=== PATIENT | female | born 1940 | race Caucasian/White ===

== ENCOUNTER 2018-11-13 19:33 | Emergency (ER) | payer OTHER ==
[2018-11-13] MEDS ORDERED: HYDROCODONE/APAP 5/325 MG TAB ONE (20:12)
--- NOTE | 2018-11-13 22:28 | ER ---
Nurse's Notes [facility] Name: Roselyn Riley Age: 77 yrs Sex: Female : 1940 Arrival Date: 11/13/2018 Time: 19:36 Bed 23 [facility] MD: Diagnosis: Contusion of lower back and pelvis Presentation: 11/13 20:59 Presenting complaint: Child states: SHE FELL THIS MORNING. SHE WAS ON BED ALL DAY. I rv TOOK HER TO THE PRIMARY DOCTOR AND HER LABS ARE ABNORMAL. Care prior to arrival: None. Mechanism of Injury: Fall. 20:59 Acuity: JUNITO 3 rv 20:59 Method Of Arrival: Ambulatory rv 21:06 Transition of care: patient was not received from another setting of care. Onset of rv symptoms was November 13, 2018 at 08:00. Risk Assessment: Do you want to hurt yourself or someone else? Patient reports no desire to harm self or others. Initial Sepsis Screen: Does the patient meet any 2 criteria? No. Patient's initial sepsis screen is negative. Does the patient have a suspected source of infection? No. Patient's initial sepsis screen is negative. Triage Assessment: 21:03 Pain: Complains of pain in HIPS. EENT: No signs and/or symptoms were reported regarding rv the EENT system. Neuro: Level of Consciousness is awake, alert, obeys commands, Oriented to person, place, time, situation. Cardiovascular: Capillary refill < 3 seconds. Respiratory: Airway is patent. GI: No signs and/or symptoms were reported involving the gastrointestinal system. : No signs and/or symptoms were reported regarding the genitourinary system. Derm: Skin is intact. Musculoskeletal: Reports pain in back. Historical: - Allergies: 21:02 No Known Allergies; rv - Home Meds: 21:02 levothyroxine oral [Active]; rv - PMHx: 21:02 PREVIOUS CANCER, JAW; rv - PSHx: 21:02 Hysterectomy; Appendectomy; Cholecystectomy; rv - Immunization history:: Adult Immunizations up to date. - Social history:: Smoking status: Patient uses tobacco products, smokes one pack cigarettes per day. - Ebola Screening: : Patient negative for fever greater than or equal to 101.5 degrees Fahrenheit, and additional compatible Ebola Virus Disease symptoms Patient denies exposure to infectious person Patient denies travel to an Ebola-affected area in the 21 days before illness onset. Screenin:04 Abuse screen: Denies threats or abuse. Denies injuries from another. Nutritional rv screening: No deficits noted. Tuberculosis screening: No symptoms or risk factors identified. Fall Risk Fall in past 12 months (25 points). Secondary diagnosis (15 points) impaired mobility, No IV (0 pts). Ambulatory Aid- Furniture (30 pts.). Gait- Weak (10 pts.). Mental Status- Oriented to own ability (0 pts). Primary Survey: 20:30 NO uncontrolled hemorrhage observed. Breathing/Chest: Respiratory pattern: regular, rv Respiratory effort: spontaneous, Breath sounds: clear, bilaterally. Chest inspection: symmetrical rise and fall of the chest. Circulation: Cardiac rhythm: sinus rhythm. Disability Alert. Exposure/Environment: All clothing and personal items were removed. There is no evidence of uncontrolled external bleeding. No obvious injuries are noted at this time. A warming method has been applied: A warm blanket has been provided to the patient. 20:30 Reassessment Breathing/Chest Respiratory pattern Regular Circulation Heart rhythm Sinus rv rhythm Disability Alert. Assessment: 21:00 General: Appears in no apparent distress. comfortable, Behavior is calm, cooperative. rv Pain: Complains of pain in HIPS. Neuro: Level of Consciousness is awake, alert, obeys commands, Oriented to person, place, time, situation. EENT: No signs and/or symptoms were reported regarding the EENT system. Cardiovascular: Capillary refill < 3 seconds. Respiratory: Airway is patent. GI: No signs and/or symptoms were reported involving the gastrointestinal system. : No signs and/or symptoms were reported regarding the genitourinary system. Derm: Skin is intact. Musculoskeletal: Reports pain in HIPS. 22:09 Reassessment: Patient appears in no apparent distress at this time. Patient and/or rv family updated on plan of care and expected duration. Pain level reassessed. Patient is alert, oriented x 3, equal unlabored respirations, skin warm/dry/pink. Patient denies pain at this time. Patient states feeling better. Patient states symptoms have improved. Vital Signs: 20:30 BP 127 / 73; Pulse 82; Resp 18; Pulse Ox 98% ; rv 20:30 Temp 98.4(O); rv 22:07 BP 139 / 74 LA; Pulse 75; Resp 20 S; Pulse Ox 95% on R/A; rv Taurus Coma Score: 21:05 Eye Response: spontaneous(4). Verbal Response: oriented(5). Motor Response: obeys rv commands(6). Total: 15. Trauma Score (Adult): 21:05 Eye Response: spontaneous(1); Verbal Response: oriented(1); Motor Response: obeys rv commands(2); Systolic BP: > 89 mm Hg(4); Respiratory Rate: 10 to 29 per min(4); Taurus Score: 15; Trauma Score: 12 ED Course: 19:36 Patient arrived in ED. mr 19:41 Jesus Bullock MD is Attending Physician. tw4 21:00 Triage completed. rv 21:06 Arm band placed on right wrist. EKG completed in triage. Results shown to MD. rv 21:06 Patient maintains SpO2 saturation greater than 95% on room air. rv 21:07 Patient has correct armband on for positive identification. Placed in gown. Bed in low rv position. Call light in reach. Side rails up X 1. Adult w/ patient. Pulse ox on. NIBP on. 21:07 Thermoregulation: warm blanket given to patient. rv 21:21 CT completed. Patient tolerated procedure well. Patient moved back from CT. mw3 21:36 CT Pelvis wo Cont In Process Unspecified. EDMS 22:48 No provider procedures requiring assistance completed. Patient did not have IV access rv during this emergency room visit. Administered Medications: 20:00 Drug: [place] 5 mg-325 mg 1 tabs Route: PO; rv 21:27 Follow up: Response: Pain is decreased rv 20:07 CANCELLED (Duplicate Order): [place] 5 mg-325 mg 1 tabs PO once rv Outcome: 22:27 Discharge ordered by . tw4 22:48 Discharged to home ambulatory. rv 22:48 Condition: good 22:48 Discharge instructions given to patient, family, Instructed on discharge instructions, follow up and referral plans. Demonstrated understanding of instructions, follow-up care. 22:49 Patient left the ED. rv Signatures: Dispatcher [employer] EDMI Cheryl Almaraz Jesus Bullock MD MD tw4 oJsefa Azevedo mw3 Estuardo Fowler, KEYUR RN rv
--- NOTE | 2018-11-13 22:28 | EDPHYS ---
Physician Documentation [facility] Name: Roselyn Riley Age: 77 yrs Sex: Female : 1940 Arrival Date: 11/13/2018 Time: 19:36 Bed 23 Private MD: ED Physician Jessu Bullock HPI: 11/14 05:08 This 77 yrs old Female presents to ER via Ambulatory with complaints of Fall tw4 Injury. 05:08 Details of fall: The patient fell from an upright position, while walking. Onset: The tw4 symptoms/episode began/occurred today. Associated injuries: The patient sustained injury to the low back. Severity of symptoms: At their worst the symptoms were moderate, in the emergency department the symptoms are unchanged. The patient has not experienced similar symptoms in the past. Historical: - Allergies: 11/13 21:02 No Known Allergies; rv - Home Meds: 21:02 levothyroxine oral [Active]; rv - PMHx: 21:02 PREVIOUS CANCER, JAW; rv - PSHx: 21:02 Hysterectomy; Appendectomy; Cholecystectomy; rv - Immunization history:: Adult Immunizations up to date. - Social history:: Smoking status: Patient uses tobacco products, smokes one pack cigarettes per day. - Ebola Screening: : Patient negative for fever greater than or equal to 101.5 degrees Fahrenheit, and additional compatible Ebola Virus Disease symptoms Patient denies exposure to infectious person Patient denies travel to an Ebola-affected area in the 21 days before illness onset. ROS: 11/14 05:08 Constitutional: Negative for fever, chills, and weight loss, Eyes: Negative for injury, tw4 pain, redness, and discharge, Cardiovascular: Negative for chest pain, palpitations, and edema, Respiratory: Negative for shortness of breath, cough, wheezing, and pleuritic chest pain, Abdomen/GI: Negative for abdominal pain, nausea, vomiting, diarrhea, and constipation, MS/Extremity: Negative for injury and deformity, Skin: Negative for injury, rash, and discoloration. Back: Positive for injury or acute deformity, pain with movement, Negative for radiated pain. Exam: 05:08 Constitutional: This is a well developed, well nourished patient who is awake, alert, tw4 and in no acute distress. Head/Face: Normocephalic, atraumatic. Chest/axilla: Normal chest wall appearance and motion. Nontender with no deformity. No lesions are appreciated. Cardiovascular: Regular rate and rhythm with a normal S1 and S2. No gallops, murmurs, or rubs. Normal PMI, no JVD. No pulse deficits. Respiratory: Lungs have equal breath sounds bilaterally, clear to auscultation and percussion. No rales, rhonchi or wheezes noted. No increased work of breathing, no retractions or nasal flaring. Abdomen/GI: Soft, non-tender, with normal bowel sounds. No distension or tympany. No guarding or rebound. No evidence of tenderness throughout. Skin: Warm, dry with normal turgor. Normal color with no rashes, no lesions, and no evidence of cellulitis. MS/ Extremity: Pulses equal, no cyanosis. Neurovascular intact. Full, normal range of motion. Neuro: Awake and alert, GCS 15, oriented to person, place, time, and situation. Cranial nerves II-XII grossly intact. Motor strength 5/5 in all extremities. Sensory grossly intact. Cerebellar exam normal. Normal gait. 05:08 Back: pain, that is very mild, ROM is painful, with all movement, normal spinal alignment noted. Vital Signs: 11/13 20:30 BP 127 / 73; Pulse 82; Resp 18; Pulse Ox 98% ; rv 20:30 Temp 98.4(O); rv 22:07 BP 139 / 74 LA; Pulse 75; Resp 20 S; Pulse Ox 95% on R/A; rv Cannon Coma Score: 21:05 Eye Response: spontaneous(4). Verbal Response: oriented(5). Motor Response: obeys rv commands(6). Total: 15. Trauma Score (Adult): 21:05 Eye Response: spontaneous(1); Verbal Response: oriented(1); Motor Response: obeys rv commands(2); Systolic BP: > 89 mm Hg(4); Respiratory Rate: 10 to 29 per min(4); Cannon Score: 15; Trauma Score: 12 MDM: 19:46 Patient medically screened. tw4 11/14 05:08 Differential diagnosis: closed head injury. Data reviewed: vital signs, nurses notes. tw4 Data interpreted: Pulse oximetry: Interpretation: normal. Counseling: I had a detailed discussion with the patient and/or guardian regarding: the historical points, exam findings, and any diagnostic results supporting the discharge/admit diagnosis, radiology results. Medication response: norco. Response to treatment: the patient's symptoms have markedly improved after treatment, and as a result, I will discharge patient. Special discussion: I discussed with the patient/guardian in detail that at this point there is no indication for admission to the hospital. It is understood, however, that if the symptoms persist or worsen the patient needs to return immediately for re-evaluation. 11/13 20:07 Order name: CT Pelvis wo Cont tw4 Administered Medications: 11/13 20:00 Drug: [place] 5 mg-325 mg 1 tabs Route: PO; rv 21:27 Follow up: Response: Pain is decreased rv 20:07 CANCELLED (Duplicate Order): [place] 5 mg-325 mg 1 tabs PO once rv Disposition: 11/13/18 22:27 Discharged to Home. Impression: Contusion of lower back and pelvis. - Condition is Stable. - Discharge Instructions: Back Injury Prevention, [id number], Contusion, Ojov-ir-Bvas, Back Pain, Adult, [id number]. - Medication Reconciliation Form, Thank You Letter, Antibiotic Education, Prescription Opioid Use form. - Follow up: Private Physician; When: Upon discharge from the Emergency Department; Reason: If symptoms return, Recheck today's complaints, Continuance of care. - Problem is new. - Symptoms have improved. Signatures: Dispatcher [employer] Jesus Jung MD MD tw4 Estuardo Fowler RN RN rv Corrections: (The following items were deleted from the chart) 20:07 20:07 [place] 5 mg-325 mg 1 tabs PO once ordered. tw4 rv 22:49 22:27 11/13/2018 22:27 Discharged to Home. Impression: Contusion of lower back and rv pelvis. Condition is Stable. Forms are Medication Reconciliation Form, Thank You Letter, Antibiotic Education, Prescription Opioid Use. Follow up: Private Physician; When: Upon discharge from the Emergency Department; Reason: If symptoms return, Recheck today's complaints, Continuance of care. Problem is new. Symptoms have improved. tw4
--- NOTE | 2018-11-15 11:49 | RAD REPORT ---
EXAM DESCRIPTION: CT PELVIS WITHOUT IV CONTRAST CLINICAL HISTORY: Pelvic pain. COMPARISON: None. TECHNIQUE: CT scan of the pelvis without IV contrast. This exam was performed according to our [facility] dose-optimization program, which includes automated exposure control, adjustment of the mA and/or kV according to patient size and/or use of iterative reconstruction technique. FINDINGS: No acute fracture or dislocation within the pelvis is identified. There are mild degenerat vandana changes of the hip joints and sacroiliac joints. There is a 2 cm well-corticated ossific fragment in the left hip musculature likely representing sequela of old injury. There is also degenerative di sc disease at L4-L5 which is partially visualized. Vascular calcifications are present. There is a la rge volume of air and some stool in the rectum. No acute intrapelvic findings are visualized. IMPRESSION: No acute pelvic pathology. Electronically signed by: Prince Martinez MD 11/13/2018 9:43 PM CDT Due to temporary technical issues with the PACS/Fluency reporting system, reports are being signed by the in house radiologist as a courtesy to ensure prompt reporting. The interpreting radiologist is f ully responsible for the content of the report.
== END 2018-11-13 22:49 | disposition home or self-care (01) ==
LOC: ER 19:33
DX: S30.0XXA Contusion of lower back and pelvis, initial encounter (principal); W19.XXXA Unspecified fall, initial encounter; Y93.01 Activity, walking, marching and hiking; Y92.9 Unspecified place or not applicable; Z85.830 Personal history of malignant neoplasm of bone; F17.210 Nicotine dependence, cigarettes, uncomplicated
CPT/HCPCS: 72192; 99284

== ENCOUNTER 2021-07-26 20:32 | Emergency (ER) | payer OTHER ==
--- OUTSIDE RECORDS SUMMARY | 2021-07-26 20:35 | XMS REPORT | Continuity of Care Document ---
:1940 Author Organization [facility] t Address 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 Allergies, Adverse Reactions, Alerts Allergy Allergy Status Severity Reaction(s) Onset Inactive Treating Comm ents Source Name Type Date Date Clinician penicill Adverse Active rash,itching [facility] codeine Adverse Active rash [facility] Medications Ordered Filled Start Stop Current Ordering Indication Dosage Frequency Signature Comments Components Source Medication Medication Date Date Medication? Clinician (SIG) Name Name Omeprazole Omeprazole Yes Polina [address] [facility] 8[facility]15 [facility] Levothyroxi Levothyroxi Yes Polina [address] [facility] ne Sodium ne Sodium [place] in the Pia kes - morning on [facility] an empty l stomach [facility] Anoro Anoro Yes Polina [address] [facility] Ellipta Ellipta [facility] Aspirin Aspirin Yes Polina [address] [address] Adult Low Adult Low [facility] - Strength Strength [facility] Proventil Proventil Yes Polina [address] [facility] HFA HFA [facility] needed [facility] PredniSONE PredniSONE Yes Polina [address] [facility] Prozac Prozac Yes Polina [address] [facility] in the [facility] Flonase Flonase Yes Polina [address] [facility] Vitamin D3 Vitamin D3 Yes Polina [address] [facility] [address] [facility] Vitamin C Vitamin C Yes Polina [address] ER ER [facility] Immunizations Ordered Filled Immunization Date Status Comments Sour e Immunization Name Name Pneumovax Pneumovax 2019-06-[address] [facility]00 [facility] Procedures This patient has no known procedures. Encounters Start End Encounter Admission Attending Care Care Encounter Source Date/Time Date/Time Type Type Clinicians Facility Department ID 2020-02-14 Outpatient SHAWN CROFT MDA [id number] 14:42:33 [facility] 2021-02-15 2021-02-15 [id number] 2021-02-13 2021-02-13 [facility] [id number] [facility] 2021-02-11 2021-02-11 [facility] [id number] [facility] 2020-02-07 2020-02-07 [facility] [id number] [address] 16:20:00 16:20:00 [facility] Medicine Medicine Outpati ent Clinics 2020-02-01 2020-02-01 [facility] [id number] 17:39:00 17:39:00 [facility] Medicine Outpati [facility] Clinics 2020-01-30 2020-01-30 [facility] [id number] 14:00:00 14:00:00 [facility] Medicine Medicine Outpati ent Clinics 2019-10-20 2019-10-20 [facility] [id number] 10:00:00 10:00:00 [facility] Medicine Outpati ent Clinics 2019-10-10 2019-10-10 [facility] [id number] 15[facility]01:00 15:01:00 t [facility] Medicine l Medicine Outpati ent Clinics 2019-10-10 2019-10-10 [facility] [id number] 14[facility]00:00 14:00:00 [facility] Medicine Outpati ent Clinics 2019-06-22 2019-06-22 [facility] [id number] 18[facility]13:00 18:13:00 [facility] Medicine Outpati ent Clinics 2019-06-21 2019-06-21 [facility] [id number] 14:20:00 14:20:00 [facility] Medicine Outpati ent Clinics 2019-04-13 2019-04-13 [facility] [id number] 15:36:00 15:36:00 [facility] Medicine Medicine Outpati ent Clinics 2019-04-07 2019-04-07 [facility] [id number] 14:40:00 14:40:00 [facility] Medicine Medicine Outpati ent Clinics 2019-02-17 2019-02-17 [facility] [id number] 14:01:00 14:01:00 [facility] Medicine Outpati ent Clinics 2019-01-05 2019-01-05 [facility] [id number] 14:45:00 14:45:00 [facility] Medicine Medicine Outpati ent Clinics 2018-11-30 2018-11-30 Outpatient [place] [facility] [id number] 14:20:00 14:20:00 [facility] 2018-11-09 2018-11-09 Outpatient [place] [facility] [id number] 11:24:00 11:24:00 [facility] 2018-11-05 2018-11-05 Outpatient [place] [facility] [id number] 10:30:00 10:30:00 [facility] ent Clinics Results This patient has no known results.
[2021-07-26 22:18] LABS: Absolute Lymphocytes (CBC) 0.5 K/uL (0.7-4.9); Basophils % 0.3 % (0-1.3); Hematocrit 37.3 % (36.0-45.0); Lymphocytes % 3.6 % (15.3-44.8); MPV 7.5 fL (7.6-11.3)
[2021-07-26 22:22] LABS: Protime INR 0.94
[2021-07-26 22:37] LABS: ALT/SGPT 18 U/L (12-78); AST/SGOT 30 U/L (15-37); Albumin 3.3 g/dL (3.4-5.0); Alkaline Phosphatase 91 U/L (45-117); BUN Blood Urea Nitrogen 7 mg/dL (7-18); Bicarbonate 29 mmol/L (21-32); Bilirubin Direct 0.2 mg/dL (0-0.2); Bilirubin Total 0.5 mg/dL (0.2-1.0); Creatine Phosphokinase 56 U/L (26-192); Glucose Level 107 mg/dL (74-106); Magnesium 1.6 mg/dL (1.8-2.4); NT PRO-BNP 1126 pg/mL (<450); Potassium 3.2 mmol/L (3.5-5.1); Protein, Total 6.4 g/dL (6.4-8.2); Sodium Level 130 mmol/L (136-145); Troponin (Emerg Dept Use Only) 0.02 ng/mL (0.0-0.045)
[2021-07-26] MEDS ORDERED: MORPHINE 4 MG/ML SYR ONE (22:43)
[2021-07-26] MEDS ORDERED: ONDANSETRON 4 MG/2 ML VIAL ONE (22:43)
--- NOTE | 2021-07-26 22:59 | RAD REPORT ---
EXAM DESCRIPTION: RAD - Chest Single View - 07/26/2021 9:44 pm CLINICAL HISTORY: fallchest pain COMPARISON: January 2019 TECHNIQUE: AP portable chest image was obtained 07/26/2021 9:44 pm . FINDINGS: Severe COPD changes are present. No pulmonary contusion, pneumothorax or acute lung parenc hymal process seen. Heart and vasculature are normal. No measurable pleural effusion and no pneumotho rax. No acute bony abnormality seen. No acute aortic findings suspected. IMPRESSION: Severe COPD pattern. No acute finding or significant change from comparison.
--- NOTE | 2021-07-26 23:00 | RAD REPORT ---
EXAM DESCRIPTION: RAD - Pelvis - 07/26/2021 9:44 pm CLINICAL HISTORY: fall COMPARISON: Pelvis Wo Cont dated 11/13/2018; Head C Spine Cap W Con dated 07/26/2021 TECHNIQUE: AP imaging of the pelvis was obtained. FINDINGS: Lower lumbar degenerative changes are present only partially imaged. Sacral ala or obscure d by retained bowel content. No fracture of the bony pelvis confirmed on this examination. Right femu r and right hip joint show no acute findings. Intertrochanteric fracture of the proximal left femur i s present. No AVN or focal left femoral head abnormality. IMPRESSION: Intertrochanteric fracture of the left femur.
--- NOTE | 2021-07-26 23:02 | RAD REPORT ---
EXAM DESCRIPTION: RAD - Femur Left - 07/26/2021 9:44 pm CLINICAL HISTORY: Pain;Deformity, fall COMPARISON: AP pelvis same date FINDINGS: Left femur intertrochanteric fracture is present with narrowing of the femoral neck shaft angle. Pathologic component is not suspected. No AVN or focal femoral head abnormality. There is no d islocation of the femoral head. Remainder of the left femur shows no acute finding. No air or foreign body in the soft tissues. IMPRESSION: Left femur intertrochanteric fracture
[2021-07-26 23:13] LABS: Urine Blood Trace-intact (Negative); Urine Glucose Negative (Negative); Urine Protein Negative (Negative)
[2021-07-26 23:31] LABS: Urine Amorphous Sediment 2+ /HPF (NONE SEEN); Urine Bacteria >50 /HPF (<20); Urine Coarse Granular Casts 0-5 /LPF (NONE SEEN); Urine Mucus 2+ /HPF (NONE SEEN); Urine RBC <5 /HPF (NONE SEEN)
--- NOTE | 2021-07-27 00:28 | ER ---
Nurse's Notes [facility] Name: Roselyn Riley Age: 80 yrs Sex: Female : 1940 Arrival Date: 07/26/2021 Time: 20:38 Bed 3 Private MD: Diagnosis: Intertrochanteric fracture of femur-left;Fall on same level, unspecified;Displaced fracture of greater trochanter of right femur, initial encounter for closed fracture Presentation: 07/26 20:34 Chief complaint: EMS states: patient reports experiencing vertigo with fall from cc4 standing position injuring left hip with obvious external rotation left leg \T\ swelling noted upper left thigh near left hip; c/o posterior upper thigh pain \T\ area of swelling; denies striking head; denies LOC; reports family had patient sitting in chair upon arrival at scene of home. 20:34 Method Of Arrival: EMS: [facility] cc4 20:34 Coronavirus screen: Vaccine status: Patient reports being unvaccinated. Client denies cc4 travel out of the [place] in the last 14 days. At this time, the client does not indicate any symptoms associated with coronavirus-19. Ebola Screen: No symptoms or risks identified at this time. Initial Sepsis Screen: If YES to both, name of provider notified: Edd PARKER. Risk Assessment: Do you want to hurt yourself or someone else? Patient reports no desire to harm self or others. Onset of symptoms was July 26, 2021. Care prior to arrival: Medication(s) given: Fentanyl 25 mcg IVP. 20:34 Acuity: JUNITO 2 cc4 20:34 Initial Sepsis Screen: Does the patient meet any 2 criteria? No. Patient's initial cc4 sepsis screen is negative. Note # 20 g double lumen saline lock intact left wrist; # 20 g angiocath inserted right FA x 1 attempt with blood drawn \T\ sent to lab; ELENA Felix in \T\ bedside \T\ assessing with additional orders receied. 20:34 Care prior to arrival: # 20 g saline lock intact left wrist with no s/sx's of cc4 infiltration. Activity prior to arrival: Family had moved patient from floor to sitting position in chair reported EMS; moved on arrival with lifting/transfer blanket. 20:34 Mechanism of Injury: Fall Standing position onto floor. Trauma event details: Injury cc4 occurred: at home. 20:34 Initial Sepsis Screen: Does the patient have a suspected source of infection? No. cc4 Patient's initial sepsis screen is negative. Triage Assessment: 20:34 General: Appears uncomfortable, upon movement. Behavior is calm, cooperative. Pain: cc4 Complains of pain in left upper thighleft hip Pain radiates to left hip into left thigh Pain currently is 5 out of 10 on a pain scale. Quality of pain is described as aching, sharp, throbbing, Pain began 2 hours ago. Is intermittent, Alleviated by rest. EENT: No deficits noted. Eyes clear. Nares are clear Oral mucosa is dry. Neuro: No deficits noted. Level of Consciousness is awake, alert, obeys commands, Oriented to person, place, time, situation. Cardiovascular: Rhythm is sinus rhythm BBB. Respiratory: No deficits noted. Airway is patent Respiratory effort is even, unlabored, Respiratory pattern is regular, symmetrical. GI: No signs and/or symptoms were reported involving the gastrointestinal system. : No signs and/or symptoms were reported regarding the genitourinary system. Derm: Skin is fragile, is thin, has blisters on blood blister left lower anterior leg wit scabbed lesion right lower anterior leg. Musculoskeletal: Capillary refill < 3 seconds, Range of motion: limited in left hip/left lg. Injury Description: Deformity sustained to left upper thigh swelling with external rotation left leg was sustained 2-4 hours ago. Trauma Activation: Physician: ED Physician; Name: EELNA Katz; Dr. Edd Merino.; Notified At: ; Arrived At: Physician: General Surgeon; Name: ; Notified At: ; Arrived At: Physician: Radiology; Name: ; Notified At: ; Arrived At: Physician: Respiratory; Name: ; Notified At: ; Arrived At: Physician: Lab; Name: ; Notified At: ; Arrived At: Historical: - Allergies: 20:34 No Known Allergies; cc4 - Home Meds: 20:34 levothyroxine 75 mcg oral cap for hypothyroidism [Active]; albuterol sulfate 90 cc4 mcg/actuation Inhl HFAA 2 puffs every 4-6 hours for chronic obstructive pulmonary disease [Active]; - PMHx: 20:34 PREVIOUS CANCER, JAW; Chronic obstructive lung disease; Hypothyroidism; cc4 - PSHx: 20:34 Total abdominal hysterectomy; Cholecystectomy; left mandible surgery; cc4 - Immunization history:: Adult Immunizations not up to date, Client reports having NOT received the Covid vaccine. Last tetanus immunization: unknown, Pneumococcal vaccine is up to date, Flu vaccine is not up to date. - Social history:: Smoking status: Patient reports the use of cigarette tobacco products, smokes one pack cigarettes per day. Screenin:34 Abuse screen: Denies threats or abuse. Nutritional screening: Underweight. Tuberculosis cc4 screening: No symptoms or risk factors identified. Fall Risk Primary Survey: 20:34 NO uncontrolled hemorrhage observed. A: The patient is alert. Breathing/Chest: cc4 Respiratory pattern: regular, Respiratory effort: spontaneous, unlabored, Breath sounds: clear, bilaterally. Chest inspection: symmetrical rise and fall of the chest. Circulation: Cardiac rhythm: sinus rhythm. Disability Alert. Exposure/Environment: All clothing and personal items were removed. Forensic evidence collection is not deemed to be indicated at this time. Items placed in patient belonging bag. Swelling noted upper thigh near base of left hip with external rotation and shortening noted left leg. Reassessment. 20:34 A: Airway: patent. Reassessment Disability. Reassessment Airway Other patent cc4 Breathing/Chest Respiratory pattern Regular Respiratory effort Spontaneous Unlabored Breath sounds Clear Chest inspection Symmetrical Circulation Heart rhythm Sinus rhythm Pulses Palpable Color Sattley Temperature Warm Dry Disability Alert. Assessment: 07/25 20:34 Reassessment: Fall with deformity left upper thigh \T\ base left hip with external cc4 rotation left leg \T\ c/o pain with movement; see triage assessment. 07/26 23:15 Reassessment: Patient appears in no apparent distress at this time. # 16 Fr florentino cc4 catheter inserted with no difficulty with 250 ml clear yellow urine, henri. well; urine specimen sent to lab for micro; dipstick done. 07/27 02:05 Reassessment: report called to [facility] ED spoke to Raya BAER. bb Vital Signs: 07/26 20:34 BP 169 / 100; Pulse 82; Resp 20; Temp 96.7; Pulse Ox 100% on R/A; Weight 36.29 kg; cc4 Height 5 ft. 4 in. (162.56 cm); 20:34 BP 169 / 100; Pulse 82; Resp 20; Temp 96.7; Pulse Ox 100% on R/A; cc4 21:30 BP 167 / 81; Pulse 77; Resp 18 S; Pulse Ox 98% on R/A; cc4 21:30 BP 183 / 89; Pulse 86; Resp 18 S; Pulse Ox 98% on R/A; cc4 23:12 BP 127 / 77; Pulse 97; Resp 20 S; Pulse Ox 96% on R/A; cc4 23:15 BP 110 / 75; Pulse 97; Resp 18 S; Pulse Ox 95% on R/A; cc4 04 00:00 BP 129 / 65; Pulse 99; Resp 16 S; Pulse Ox 97% on R/A; cc4 00:45 BP 121 / 70; Pulse 95; Resp 12 S; Pulse Ox 96% on R/A; cc4 01:30 BP 107 / 68; Pulse 96; Resp 20 S; Temp 97.7(O); Pulse Ox 97% on R/A; cc4 02:00 BP 111 / 69; Pulse 91; Resp 16 S; Pulse Ox 97% on R/A; cc4 02:30 BP 114 / 78; Pulse 89; Resp 18 S; Pulse Ox 96% on R/A; cc4 03:05 BP 124 / 71; Pulse 90; Resp 20; Temp 96.9(TE); Pulse Ox 97% on R/A; cc4 07/26 20:34 Body Mass Index 13.73 (36.29 kg, 162.56 cm) cc4 Taurus Coma Score: 07/26 20:34 Eye Response: spontaneous(4). Verbal Response: oriented(5). Motor Response: obeys cc4 commands(6). Total: 15. Trauma Score (Adult): 20:34 Eye Response: spontaneous(1); Verbal Response: oriented(1); Motor Response: obeys cc4 commands(2); Systolic BP: > 89 mm Hg(4); Respiratory Rate: 10 to 29 per min(4); Taurus Score: 15; Trauma Score: 12 ED Course: 20:34 Fall risk band placed. Placed in gown. Bed in low position. Call light in reach. Side cc4 rails up X2. pvc monitor on. Pulse ox on. NIBP on. 20:34 Patient maintains SpO2 saturation greater than 95% on room air. cc4 20:34 Thermoregulation: warm blanket given to patient. cc4 20:38 Patient arrived in ED. mw2 20:39 [facility] cp 20:39 Edd Merino MD is Attending Physician. cp 20:46 Anne Bergman, KEYUR is Primary Nurse. cc4 20:59 Triage completed. cc4 21:06 Arm band placed on right wrist. cc4 21:44 XRAY Chest (1 view) In Process Unspecified. EDMS 21:44 XRAY Pelvis In Process Unspecified. EDMS 21:44 XRAY Femur LEFT In Process Unspecified. EDMS 22:34 CT Traumagram (Head C Spine CAP W Con) In Process Unspecified. EDMS 23:21 Urine Microscopic Only Sent. cc4 12/04 00:27 initiated a transfer with Leonarda Ludwig from [facility]. mw2 00:37 [facility] denied due to capacity. mw2 00:44 initiated a transfer with Danuta Harvey from [facility]. mw2 01:01 administrative approval given by Danuta Harvey/patient has been accepted to [address] to the ER/ Dr. Velazquez accepted the patient in transfer/ report to be called to [phone]. 03:05 No provider procedures requiring assistance completed. cc4 03:05 Patient transferred, IV remains in place. cc4 Administered Medications: 1203 22:48 Drug: morphine 4 mg Route: IVP; Site: right forearm; as6 12/04 00:00 Follow up: Response: No adverse reaction; Pain is decreased cc4 12 22:49 Drug: Zofran (Ondansetron) 4 mg Route: IVP; Site: right forearm; as6 12/04 00:00 Follow up: Response: No adverse reaction cc4 01:00 Drug: Rocephin (cefTRIAXone) 1 grams Route: IV; Rate: calculated rate; Site: right cc4 antecubital; 03:05 Follow up: Response: No adverse reaction cc4 03:00 Drug: morphine 4 mg Route: IVP; Site: right antecubital; cc4 03:05 Follow up: Response: No adverse reaction; Pain is decreased cc4 Intake: 03:05 PO: 0ml; IV: 50ml; Total: 50ml. cc4 Output: 03:05 Urine: 400ml (Florentino); Total: 400ml. cc4 Outcome: 00:27 ER care complete, transfer ordered by MD. rowan 03:05 Transferred by ground EMS to [facility], Transfer form completed. X-rays sent cc4 w/ patient. 03:05 Condition: stable 03:05 Instructed on the need for transfer, Demonstrated understanding of instructions. 03:05 Patient's length of stay in the Emergency Department was greater than 2 hours. Locating cc4 Accepting Transfer Facility.Patient's length of stay extended due to 03:14 Patient left the ED. cc4 Signatures: Dispatcher [employer] EDMS Chelsi Billingsley RN RN bb Edd Mccann PA PA cp João Victor mw2 Anne Bergman RN RN cc4 Dustin Rey RN RN as6 Corrections: (The following items were deleted from the chart) 07/26 23:26 23:24 Reassessment: cc4 cc4
--- NOTE | 2021-07-27 00:29 | EDPHYS ---
Physician Documentation [facility] Name: Roselyn Riley Age: 80 yrs Sex: Female : 1940 Arrival Date: 07/26/2021 Time: 20:38 Bed 3 Private MD: ED Physician Edd Merino HPI: 07/26 20:45 This 80 yrs old Female presents to ER via EMS with complaints of Fall. cp 20:45 Details of fall: The patient fell from an upright position, while walking. Onset: The cp symptoms/episode began/occurred today. Associated injuries: The patient sustained left upper leg. Historical: - Allergies: 20:34 No Known Allergies; cc4 - Home Meds: 20:34 levothyroxine 75 mcg oral cap for hypothyroidism [Active]; albuterol sulfate 90 cc4 mcg/actuation Inhl HFAA 2 puffs every 4-6 hours for chronic obstructive pulmonary disease [Active]; - PMHx: 20:34 PREVIOUS CANCER, JAW; Chronic obstructive lung disease; Hypothyroidism; cc4 - PSHx: 20:34 Total abdominal hysterectomy; Cholecystectomy; left mandible surgery; cc4 - Immunization history:: Adult Immunizations not up to date, Client reports having NOT received the Covid vaccine. Last tetanus immunization: unknown, Pneumococcal vaccine is up to date, Flu vaccine is not up to date. - Social history:: Smoking status: Patient reports the use of cigarette tobacco products, smokes one pack cigarettes per day. ROS: 20:50 Constitutional: Negative for body aches, chills, fever, poor PO intake. cp 20:50 Eyes: Negative for injury, pain, redness, and discharge. cp 20:50 Neck: Negative for pain with movement, pain at rest, stiffness. 20:50 Cardiovascular: Negative for chest pain, edema, palpitations. 20:50 Respiratory: Negative for cough, shortness of breath, wheezing. 20:50 Abdomen/GI: Negative for abdominal pain, nausea, vomiting, and diarrhea. 20:50 MS/extremity: Positive for injury or acute deformity, decreased range of motion, pain, of the left hip. 20:50 Neuro: Negative for altered mental status, headache, loss of consciousness, syncope. 20:50 All other systems are negative. Exam: 20:55 Constitutional: The patient appears in no acute distress, alert, awake, cp non-diaphoretic, non-toxic, well developed, frail, uncomfortable. 20:55 Head/Face: Normocephalic, atraumatic. cp 20:55 Eyes: Periorbital structures: appear normal, Pupils: equal, round, and reactive to light and accomodation, Extraocular movements: intact throughout, Conjunctiva: normal, no exudate, no injection, Sclera: no appreciated abnormality, Lids and lashes: appear normal, bilaterally. 20:55 ENT: External ear(s): are unremarkable, Nose: is normal, Mouth: Lips: moist, Oral mucosa: pink and intact, moist, Posterior pharynx: Airway: no evidence of obstruction, patent. 20:55 Neck: C-spine: vertebral tenderness, is not appreciated, crepitus, is not appreciated, ROM/movement: is normal, is supple, without pain, no range of motions limitations, no nuchal rigidity. 20:55 Chest/axilla: Inspection: normal, Palpation: is normal, no crepitus, no tenderness. 20:55 Cardiovascular: Rate: normal, Rhythm: regular, Edema: is not appreciated, JVD: is not appreciated. 20:55 Respiratory: the patient does not display signs of respiratory distress, Respirations: normal, no use of accessory muscles, no retractions, labored breathing, is not present, Breath sounds: are clear throughout, no decreased breath sounds, no stridor, no wheezing. 20:55 Abdomen/GI: Inspection: abdomen appears normal, Bowel sounds: active, all quadrants, Palpation: abdomen is soft and non-tender, in all quadrants. 20:55 Back: vertebral tenderness, is not appreciated. 20:55 Musculoskeletal/extremity: Extremities: grossly normal except: noted in the left hip: decreased ROM, deformity, pain, Pulses: noted to be 2+ in the left dorsalis pedis artery, the left hip Severe pain noted. 20:55 Neuro: Orientation: to person, place \\T\\ time. Mentation: is normal, Motor: moves all fours, strength is normal. 21:55 ECG was reviewed by the Attending Physician. cp Vital Signs: 20:34 BP 169 / 100; Pulse 82; Resp 20; Temp 96.7; Pulse Ox 100% on R/A; Weight 36.29 kg; cc4 Height 5 ft. 4 in. (162.56 cm); 20:34 BP 169 / 100; Pulse 82; Resp 20; Temp 96.7; Pulse Ox 100% on R/A; cc4 21:30 BP 167 / 81; Pulse 77; Resp 18 S; Pulse Ox 98% on R/A; cc4 21:30 BP 183 / 89; Pulse 86; Resp 18 S; Pulse Ox 98% on R/A; cc4 23:12 BP 127 / 77; Pulse 97; Resp 20 S; Pulse Ox 96% on R/A; cc4 23:15 BP 110 / 75; Pulse 97; Resp 18 S; Pulse Ox 95% on R/A; cc4 07/27 00:00 BP 129 / 65; Pulse 99; Resp 16 S; Pulse Ox 97% on R/A; cc4 00:45 BP 121 / 70; Pulse 95; Resp 12 S; Pulse Ox 96% on R/A; cc4 01:30 BP 107 / 68; Pulse 96; Resp 20 S; Temp 97.7(O); Pulse Ox 97% on R/A; cc4 02:00 BP 111 / 69; Pulse 91; Resp 16 S; Pulse Ox 97% on R/A; cc4 02:30 BP 114 / 78; Pulse 89; Resp 18 S; Pulse Ox 96% on R/A; cc4 03:05 BP 124 / 71; Pulse 90; Resp 20; Temp 96.9(TE); Pulse Ox 97% on R/A; cc4 07/26 20:34 Body Mass Index 13.73 (36.29 kg, 162.56 cm) cc4 Logan Coma Score: 07/26 20:34 Eye Response: spontaneous(4). Verbal Response: oriented(5). Motor Response: obeys cc4 commands(6). Total: 15. Trauma Score (Adult): 20:34 Eye Response: spontaneous(1); Verbal Response: oriented(1); Motor Response: obeys cc4 commands(2); Systolic BP: > 89 mm Hg(4); Respiratory Rate: 10 to 29 per min(4); Logan Score: 15; Trauma Score: 12 MDM: 20:41 Patient medically screened. cp 23:35 Physician consultation: Nic Gray MD was called at 23:36, no answer, unable to cp leave message on voicemail. 23:35 Data reviewed: vital signs, nurses notes, lab test result(s), EKG, radiologic studies, cp CT scan, plain films. 07/27 00:10 ED course: attempt to contact on-call ortho, DR Gray, unsuccessful. 07/26 20:43 Order name: Basic Metabolic Panel; Complete Time: 23:32 07/26 23:32 Interpretation: Normal except: GLUC 107; CL 93; K 3.2; NA 130. cp 07/26 20:43 Order name: CBC with Diff; Complete Time: 22:29 07/26 22:29 Interpretation: Normal except: WBC 13.50; RBC 3.80; MPV 7.5; SIM% 89.9; LYM% 3.6; NEUT cp A 12.2; LYMA 0.5. 07/26 20:43 Order name: LFT's; Complete Time: 23:32 07/26 20:43 Order name: Magnesium; Complete Time: 23:32 07/26 20:43 Order name: NT PRO-BNP; Complete Time: 23:32 07/26 20:43 Order name: PT-INR; Complete Time: 22:29 07/26 20:43 Order name: Troponin (emerg Dept Use Only); Complete Time: 23:32 07/26 20:43 Order name: XRAY Chest (1 view); Complete Time: 23:32 07/26 20:43 Order name: CK; Complete Time: 23:32 07/26 20:43 Order name: Urine Microscopic Only; Complete Time: 23:32 07/26 23:32 Interpretation: Normal except: UBACT >50. 07/26 23:13 Order name: Urine Dipstick-Ancillary; Complete Time: 23:32 EDDE 07/26 23:32 Order name: Urine Culture EDDE 07/27 00:20 Order name: COVID-19 SARS RT PCR (Document "Date of Onset" if Symptomatic) mw2 07/27 02:42 Order name: CREATININE WHOLE BLOOD EDDE 07/26 20:43 Order name: EKG; Complete Time: 21:13 07/26 20:43 Order name: Cardiac monitoring; Complete Time: 21:07 07/26 20:43 Order name: EKG - Nurse/Tech; Complete Time: 23:21 12/03 20:43 Order name: IV Saline Lock; Complete Time: 21:07 cp 07/26 20:43 Order name: Labs collected and sent; Complete Time: 22:16 cp 07/26 20:43 Order name: O2 Per Protocol; Complete Time: 22:16 cp / 20:43 Order name: O2 Sat Monitoring; Complete Time: 21:07 cp / 20:43 Order name: Moreno; Complete Time: 23:21 cp 07/26 20:43 Order name: CT Traumagram (Head C Spine CAP W Con) cp 07/26 20:43 Order name: XRAY Pelvis; Complete Time: 23:32 cp / 20:43 Order name: XRAY Femur LEFT; Complete Time: 23:32 cp 07/26 20:43 Order name: Urine Dipstick-Ancillary (obtain specimen); Complete Time: 23:21 cp EC/03 21:55 Rate is 87 beats/min. Rhythm is regular. KS interval is normal. QRS interval is normal. cp QT interval is prolonged at 434 msec. Interpreted by me. Reviewed by me. Administered Medications: 22:48 Drug: morphine 4 mg Route: IVP; Site: right forearm; as6 07/27 00:00 Follow up: Response: No adverse reaction; Pain is decreased cc4 07/26 22:49 Drug: Zofran (Ondansetron) 4 mg Route: IVP; Site: right forearm; as6 1204 00:00 Follow up: Response: No adverse reaction cc4 01:00 Drug: Rocephin (cefTRIAXone) 1 grams Route: IV; Rate: calculated rate; Site: right cc4 antecubital; 03:05 Follow up: Response: No adverse reaction cc4 03:00 Drug: morphine 4 mg Route: IVP; Site: right antecubital; cc4 03:05 Follow up: Response: No adverse reaction; Pain is decreased cc4 Disposition Summary: 07/27/21 00:27 Transfer Ordered Condition: Stable cp Problem: new cp Symptoms: have improved cp Transfer Location: [facility](07/27/21 01:30) cp Reason: Specialty(07/27/21 01:30) cp Accepting Physician: DR Velazquez(07/27/21 03:14) cc4 Diagnosis - Intertrochanteric fracture of femur - left cp - Fall on same level, unspecified cp - Displaced fracture of greater trochanter of right femur, initial encounter for cp closed fracture Forms: - Medication Reconciliation Form cp - SBAR form cp Addendum: 07/29/2021 07:49 Co-signature as Attending Physician, Edd Merino MD I agree with the assessment and c maciel plan of care. Signatures: Dispatcher [employer] EDEdd Narvaez MD MD cha Page, Corey, PA PA cp Anne Bergman RN RN cc4 Dustin Rey RN RN as6 Corrections: (The following items were deleted from the chart) 07/27 01:30 00:27 Doctor cp cp 01:30 00:27 [facility] cp cp 01:30 00:27 Higher level of care cp cp 03:14 01:30 DR Velazquez cp cc4
[2021-07-27] MEDS ORDERED: CEFTRIAXONE 1000 MG/VIAL ONE (01:17)
[2021-07-27] MEDS ORDERED: MORPHINE 4 MG/ML SYR ONE (03:01)
[2021-07-27 03:43] VITALS: BP 107/68; TEMP 97.7; O2SAT 97
--- NOTE | 2021-07-27 12:36 | EKG ---
Test Date: 2021-07-26 Test Time: 21:47:45 Astrochemist: ALESHA MEASUREMENT RESULTS: Intervals: Rate: 85 NM: 170 QRSD: 100 QT: 444 QTc: 528 Howard: P: 75 NM: 170 QRS: -79 T: 79 INTERPRETIVE STATEMENTS: Sinus rhythm with premature atrial complexes Right atrial enlargement Left axis deviation Pulmonary disease pattern Incomplete right bundle branch block Prolonged QT Abnormal ECG Compared to ECG 12/09/2016 16:35:28 Atrial premature complex(es) now present Prolonged QT interval now present Myocardial infarct finding no longer present Electronically Signed On 07-27-21 12:35:33 PELOTA MAKER by [place]oacano Tovar
--- NOTE | 2021-07-28 11:17 | RAD REPORT ---
EXAM DESCRIPTION: CT - Head C Spine Cap Adelia Sheriff - 07/27/2021 6:30 am CLINICAL HISTORY: Left hip and arm pain after fall. COMPARISON: None. TECHNIQUE: Axial [address] imaging of the brain. Axial [address] imaging of the cervical spine. Reformatted coronal and sagittal images obtai edgar. Axial CT imaging of the chest, abdomen and pelvis performed with intravenous contrast. Reformatted co dmitriy and sagittal images obtained. This examination was performed according to our departmental dose optimization program, which include s automated exposure control, adjustment of the mA and/or kV according to patient size and/or use of iterative reconstruction technique. FINDINGS: CT Head: Mild age-related cortical volume loss. There is no intracranial bleed, edema, mass or midline shift. No evidence of acute large territorial infarction. There is mild decreased white matter attenuation d ue to chronic microvascular ischemic change. Unremarkable cerebellum and vermis. No hemorrhage within the posterior fossa. Normal sella contents. Intraorbital contents appear normal. Complete opacification of the left sphenoid sinus with diffuse w all thickening due to chronic disease. Remaining paranasal sinuses are clear. Mastoid air cells are c lear. Intact skull base and calvarium. Normal scalp soft tissues. CT cervical spine: There is full reversal of lordosis C3-C6. There is significant degenerative disc narrowing at C5-6. M arked left C5-6 degenerative foraminal stenosis.. There is no acute cervical spine fracture. There is no traumatic subluxation. There is moderate right mid cervical facet arthropathy which contributes t o significant right C3-4 foraminal stenosis. There are hypertrophic changes along the anterior arch o f C1 and tip of the odontoid process. There is no odontoid or lateral masses fracture. The craniocerv ical and cervicothoracic junction alignment is anatomic. There is no spinal canal stenosis. There is no prevertebral edema. There is a broad levoconvex cervical spine curve. The parapharyngeal soft tissues and mucosal spaces are unremarkable. There are numerous surgical clip s throughout the neck. Normal epiglottis. The subglottic airway appears unremarkable. Normal thyroid. CHEST HEART/VESSELS: Heart is normal in size. No pericardial fluid. Normal caliber thoracic aorta with diff use atherosclerosis. Normal branch pattern of the well-opacified arch vessels. Normal pulmonary vascu lature. MEDIASTINUM AND EDGAR: There is no mediastinal hemorrhage or emphysema. Normal trachea with dependent endotracheal debris. There is dependent debris in the proximal right and left main bronchus. Unremark able esophagus. LUNGS/PLEURA: Diffuse centrilobular lucencies due to emphysema. There is no airspace consolidation or edema. No pneumothorax. There is an indeterminate noncalcified 1.3 cm nodule medial right lower lobe seen on axial image 29 of series 602. There is biapical pleural thickening. Lungs are hyperinflated. CHEST WALL/SOFT TISSUES: Unremarkable thyroid. There is no supraclavicular or axillary lymphadenopath y. Sternum is intact. There is a remote moderate T4 and mild T11 compression fracture. No paraspinal edema. No retropulsion. No subluxation. Mild dextroconvex thoracic curve. ABDOMEN: Unremarkable liver size and contour. Mild intrahepatic and extrahepatic biliary duct dilatation. Comm on bile duct is 9 mm. Gallbladder has been resected. Normal spleen. Normal pancreas and adrenal gland s. Unremarkable left kidney. Superior right renal exophytic 5.3 cm cyst with an adjacent smaller 1.9 cm cyst. There is an anterior right renal exophytic 2.2 cm cyst. No hydronephrosis. There are additio nal hypodensities in the right and left kidney which are too small to characterize. There is no urina ry check stone or hydronephrosis. Significant abdominal aorta atherosclerosis. No aneurysm. Mesenteric vessels are well-opacified. Norm al inferior vena cava. Unremarkable stomach. Small bowel loops appear normal. Appendix is surgically absent. There is mild s igmoid colon diverticulosis without diverticulitis. There is no intraperitoneal hemorrhage or free ai r. PELVIS: Unremarkable bladder. No free fluid within the pelvis. Uterus is surgically absent. There is a modera te remote appearing anterior wedge compression fracture of L3. There is significant degenerative disc narrowing at L4-5 with endplate sclerosis. Mild degenerative anterior subluxation of L4 on L5. There is deformity of the mid sacrum which may be congenital. There is an acute fracture of the right greater trochanter. There is no right hip dislocation. There is right femoral head sclerosis suggesting early avascular necrosis. There is an acute intertrochante mendy fracture of the proximal left femur as well as a remote fracture involving the base of the left g reater trochanter. There is a left hip effusion/hemarthrosis. 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 There is anterior left proximal thigh intramuscular edema. T here is subcutaneous edema. IMPRESSION: 1. Mild to moderate senescent brain changes. No intracranial acute finding. No skull fra cture. 2. Chronic left sphenoid sinus disease. 3. No acute cervical spine fracture or traumatic subluxation. Mid cervical spondylosis with reversal of lordosis. There is degenerative marked right C3-4 and left C5-6 foraminal stenosis.. 4. No acute traumatic chest finding. 5. Emphysema. Endotracheal and proximal endobronchial debris. Medial right lower lobe 1.3 cm pulmonar y nodule is indeterminate. This can be further assessed with repeat CTA chest with contrast in 6 ridge hs or with PET CT scan. 6. Old remote thoracic spine fractures as detailed above. 7. No traumatic finding within the abdomen or pelvis. 8. Right renal cysts. 9. Acute right greater trochanter fracture. 10. Acute left proximal femur intertrochanteric fracture. Significant surrounding intramuscular and s oft tissue edema compatible with hematomas. No clear focus of active hemorrhage. Left hip effusion/he marthrosis. 11. Old L3 fracture. L4-5 marked spondylosis. 12. Postcholecystectomy biliary dilatation. Sigmoid colon diverticulosis without diverticulitis. Electronically signed by: Louann Burkett DO 07/26/2021 11:14 PM [facility] [employer] Due to temporary technical issues with the PACS/Fluency reporting system, reports are being signed by the in house radiologists without review as a courtesy to insure prompt reporting. The interpreting radiologist is fully responsible for the content of the report.
== END 2021-07-27 03:14 | disposition short-term general hospital (02) ==
LOC: ER 20:32
DX: S72.142A Displaced intertrochanteric fracture of left femur, initial encounter for closed fracture (principal); J44.9 Chronic obstructive pulmonary disease, unspecified; E03.9 Hypothyroidism, unspecified; F17.210 Nicotine dependence, cigarettes, uncomplicated; W18.30XA Fall on same level, unspecified, initial encounter; Y92.9 Unspecified place or not applicable; Z20.822 Contact with and (suspected) exposure to COVID-19
CPT/HCPCS: 93005 ×2; 87088; 85025; 87086; 80048; 36415; 83735; 82550; 85610; 82565; 80076; 84484; 83880; 70450; 72125; 71260; 74177; 71045; 72170; 73552; 99285; U0003; Q9967; J2405; 81003; 81015

== ENCOUNTER 2022-07-04 12:19 | Emergency (ER) | payer OTHER ==
--- OUTSIDE RECORDS SUMMARY | 2022-07-04 12:26 | XMS REPORT | Continuity of Care Document ---
:1940 Author Organization [facility] t Address [address] [place] [place] [address] Care Team Providers Name Role Phone None, None Primary Care Physician Unavailable BELLA GRIJALVA Attending Clinician Unavailable Polina Valenzuela Attending Clinician Unavailable BRIDGETT CROFT Attending Clinician Unavailable Jasmin Menendez Attending Clinician Gunner Handy Attending Clinician MAX VARGAS Attending Clinician Unavailable Max Vargas Attending Clinician MAX VARGAS Admitting Clinician Unavailable Max Vargas Admitting Clinician Payers Payer Name Policy Type Policy Number Effective Date Expiration Date S wayne AETNA MEDICARE [id number] 2021 PPO 00:00:00 MEDICARE PART A [id number] 2005 AND B 00:00:00 [facility] [id number] 2004 EXXON/CANCER 00:00:00 [place] IN AETNA MEDICARE 53 [id number] 2021 Common S pirit 00:00:[address] - [facility] AETNA MEDICARE 53 [id number] Common Spi rit PPO - [facility] AETNA C1 [id number] [facility] MEDICARE MB [id number] 2005 [facility] NOVITAS 00:00:00 [facility] Problems Condition Condition Condition Status Onset Resolution Last Treating Co mments Source Name Details Category Date Date Treatment Clinician Date Pathologic Pathologic Disease Active 2020-08 U T al al 09-30 Health fracture fracture 00:00: of left of left 00 femur due femur due to to neoplastic neoplastic disease disease CLOSD CLOSD Diagnosis Active 2020-082021-08-08 Mem oria RIGHT RIGHT 09-27 21:49:00 l FEMUR FX FEMUR FX 00:00: Mike n Active 00 07[facility]27/[facility] Diagnosis Active 2020-082021-07-27 Memoria HIP BILATERAL 09-27 05:25:00 l FRACTURE HIP 00:00: Pedro FRACTURE 00 Active 07/27/2021 [facility] [id number] Stage 2 Problem Active Commo n chronic Spirit kidney - [facility] disease [facility] [id number] Acquired Problem Active Comm on hypothyroi Spirit dism [facility] Gastro-eso Gastro-eso Problem Active C ommon phageal phageal Spirit reflux reflux [facility] COPD - COPD Problem Active Common Chronic (chronic Spirit obstructiv obstructiv - [facility] e e pulmonary pulmonary [place] s disease disease) 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 debbie [facility] malnutriti [facility] [id number] H/O oral Problem Active Comm on cancer [facility] [id number] Sciatica Problem Active Commo n of right Spirit side [facility] Nicotine Nicotine Problem Active Commo n dependence dependence Sp guanaco [facility] [id number] Body mass Problem Active Com mon index Spirit (BMI) 19.9 [facility] or less, [facility] [id number] Fatigue, Problem Active Commo n unspecifie Spirit d type [facility] [id number] Essential Problem Active Comm on hypertensi Spirit on [facility] [id number] Reactive Problem Active Commo n depression [facility] DISP FX OF DISP FX Diagnosis Active 2021-08-08 Memoria GREATER OF GREATER 21:49:00 l TROCHANTER TROCHANTER He rmann OF RIGHT F OF RIGHT F Active [facility] Closed Closed Problem Active 2021-08-05 Adams osito fracture fracture 09:43:05 l of femur, of femur, Herm jason greater greater trochanter trochanter (disorder) (disorder) Active Problem 08/05/2021 [facility] Closed Closed Problem Active 2021-08-05 Adams osito intertroch intertroch 09:43:05 l anteric anteric Pedro fracture fracture (disorder) (disorder) Active Problem 08/05/2021 [facility] Allergies, Adverse Reactions, Alerts Allergy Allergy Status Severity Reaction(s) Onset Inactive Treating Comm ents Source Name Type Date Date Clinician Penicill Allergy Active 2020-08 Other [facility] in G to 2-22 reaction( Health substanc 00:00: s): e 00 rash,itch ing Codeine Allergy Active Rash 2020-08 Other [facility] to 2-22 reaction( Health substanc 00:00: s): rash e 00 Amoxicil Allergy Active 2020-08 Other [facility] jonah to 2-10 reaction( Health substanc 00:00: s): e 00 Cutaneous reactions Amoxicil Propensi Active Rash UT jonah-Pot ty to 02-18 Health Clavulan adverse 00:00: ate reaction 00 s Codeine Codeine Active rash Common [facility] Penicill Penicill Active rash,itching Common in in [facility] Social History Social Habit Start Date Stop Date Quantity Comments Source Exposure to Not sure [facility] SARS-CoV-2 (event) History of Tobacco Current Smoker Co mmon Spirit - Use [facility] Sex Assigned At Common Sp guanaco - [facility] Cigarettes smoked 2021-10-23 2021-10-23 [facility] (pack per 00:00:00 00:00:00 day) - Reported Tobacco use and 2021-10-23 2021-10-23 Smokeless tobacco [facility] exposure 00:00:00 00:00:00 non-user Alcohol intake 2021-10-23 2021-10-23 1 /d [facility] 00:00:00 00:00:00 Social History 2021-07-27 2021-07-27 [facility] Cande perez 23:31:14 23:31:14 Smoking Status Start Date Stop Date Source Tobacco smoking consumption [facility] unknown Current Smoker 2021-10-13 00:00:00 [facility]iri t - [facility] nter Medications Ordered Filled Start Stop Current Ordering Indication Dosage Frequency Signature Comments Components Source Medication Medication Date Date Medication? Clinician (SIG) Name Name umeclidiniu Yes 1 puff [facility] m-vilantero 3-16 Health l (Anoro 14:06: Ellipta) 46 62.5-25 MCG/INH aerosol powder umeclidiniu Yes 1 puff [facility] m-vilantero 3-16 Health l (Anoro 14:06: Ellipta) 46 62.5-25 MCG/INH aerosol powder Trelegy Yes INHALE 1 UT Ellipta 3-01 PUFF(S) BY [facility] 100-62.5-25 00:00: MOUTH ONCE MCG/INH 00 A DAY FOR aerosol 30 DAYS powder Trelegy Yes INHALE 1 UT Ellipta 3-01 PUFF(S) BY [facility] 100-62.5-25 00:00: MOUTH ONCE MCG/INH 00 A DAY FOR aerosol 30 DAYS powder umeclidiniu Yes 1 puff UT m-vilantero 2-02 Health l (Anoro 12:55: Ellipta) 21 62.5-25 MCG/INH aerosol powder umeclidiniu Yes 1 puff UT m-vilantero 2-02 Health l (Anoro 12:55: Ellipta) 21 62.5-25 MCG/INH aerosol powder umeclidiniu 2020-08 Yes 1 puff UT m-vilantero 2-22 Health l (Anoro 08:34: Ellipta) 46 62.5-25 MCG/INH aerosol powder levothyroxi 2020-08 Yes UT ne 2-20 Health (Synthroid, 00:00: Levoxyl) 00 100 MCG tablet gabapentin 2020-08 Yes 100mg Take 100 UT (Neurontin) 2-20 mg by Health 100 MG 00:00: mouth capsule 00 every night. TAKE 1 CAPSULE BY MOUTH EVERY DAY AT BEDTIME levothyroxi 2020-08 Yes UT ne 2-20 Health (Synthroid, 00:00: Levoxyl) 00 100 MCG tablet levothyroxi 2020-08 Yes UT ne 2-20 Health (Synthroid, 00:00: Levoxyl) 00 100 MCG tablet gabapentin 2020-08 Yes 100mg Take 100 UT (Neurontin) 2-20 mg by Health 100 MG 00:00: mouth capsule 00 every night. TAKE 1 CAPSULE BY MOUTH EVERY DAY AT BEDTIME levothyroxi 2020-08 Yes UT ne 2-20 Health (Synthroid, 00:00: Levoxyl) 00 100 MCG tablet gabapentin 2020-08 Yes 100mg Take 100 UT (Neurontin) 2-20 mg by Health 100 MG 00:00: mouth capsule 00 every night. TAKE 1 CAPSULE BY MOUTH EVERY DAY AT BEDTIME levothyroxi 2020-08 Yes UT ne 2-20 Health (Synthroid, 00:00: Levoxyl) 00 100 MCG tablet gabapentin 2020-08 Yes 100mg Take 100 UT (Neurontin) 2-20 mg by Health 100 MG 00:00: mouth capsule 00 every night. TAKE 1 CAPSULE BY MOUTH EVERY DAY AT BEDTIME FLUoxetine 2020-08 Yes UT (PROzac) 40 2-13 Health MG capsule 00:00: 00 FLUoxetine 2020-08 Yes UT (PROzac) 40 2-13 Health MG capsule 00:00: 00 FLUoxetine 2020-08 Yes UT (PROzac) 40 2-13 Health MG capsule 00:00: 00 FLUoxetine 2020-08 Yes UT (PROzac) 40 2-13 Health MG capsule 00:00: 00 FLUoxetine 2020-08 Yes UT (PROzac) 40 2-13 Health MG capsule 00:00: 00 Acetaminoph 2020-08 Yes 650 mg = 2 Memoria en 325 MG 2-09 tab, PO, l Oral Tablet 19:17: Q8H-06, X H ermann 00 10 day, # 60 tab, 0 Refill(s), Pharmacy: [facility], 162.56, cm, 07/27/21 17:42:00 CAFETERIA OPERATOR, Height, 39.4, kg, 07/27/21 17:42:00 CAFETERIA OPERATOR, Weight gabapentin 2020-08 Yes 100 mg = 1 M emoria 100 MG Oral 2-09 cap, PO, l Capsule 19:17: Bedtime, # Herm jason 00 30 cap, 0 Refill(s), Pharmacy: [facility], 162.56, cm, 07/27/21 17:42:00 CAFETERIA OPERATOR, Height, 39.4, kg, 07/27/21 17:42:00 CAFETERIA OPERATOR, Weight oxyCODONE 5 2020-08 Yes 5 mg = 1 Me moria mg oral 2-09 cap, PO, l capsule, 19:17: Q6H, PRN Christen nn immediate 00 Pain Score release 7-10, X 5 day, # 20 cap, 0 Refill(s), Pharmacy: [facility], 162.56, cm, 07/27/21 17:42:00 CAFETERIA OPERATOR, Height, 39.4, kg, 07/27/21 17:42:00 CAFETERIA OPERATOR, Weight POLYETHYLEN 2020-08 Yes 17 gm, PO, Memoria E GLYCOL 2-09 Daily, X l 3350 142 19:11: 15 day, # Herm jason MG/ML Oral 00 255 gm, 0 Solution Refill(s), [Miralax] Pharmacy: [facility], 162.56, cm, 07/27/21 17:42:00 CAFETERIA OPERATOR, Height, 39.4, kg, 07/27/21 17:42:00 CAFETERIA OPERATOR, Weight enoxaparin 2020-08 Yes 30 mg = Adams osito 30 mg/0.3 2-09 0.3 mL, l mL 19:10: SUB-Q, Pedro subcutaneou 00 [id number], s solution X 21 day, # 13 mL, 0 Refill(s), Pharmacy: [facility], 162.56, cm, 07/27/21 17:42:00 CAFETERIA OPERATOR, Height, 39.4, kg, 07/27/21 17:42:00 CAFETERIA OPERATOR, Weight levothyroxi 2020-08 Yes 100 Memori a ne 100 mcg 2-09 microgram l (0.1 mg) 19:09: = 1 tab, Christen nn oral tablet 00 PO, Daily, Please follow up with your primary care or endocrinol ogist for further management . Please follow up for repeat TFTs in 4-6 weeks, # 30 tab, 0 Refill(s), Pharmacy: [facility], 162.56, cm, 07/27/21 17:... Bisacodyl 2020-08 No Notes: Memori a 0.333 MG/ML - (Same As: l Enema 12:06: Dulcolax, Pedro 00 Bisco-Lax) Lactated 2020-08 No 1,000 mL, Adams osito Ringers IV 10-02 Rate: 100 l 1,000 mL 12:04: ml/hr, Infuse over: 10 hr, Route: IV, Dosing Weight 39.4 kg, Total Volume: 1,000, Start date: 08/01/21 6:04:00 CAFETERIA OPERATOR, Duration: 30 day, Stop date: 08/31/21 6:03:00 CAFETERIA OPERATOR, BSA: 1.34 m2, 0 Lactated 2020-08 No 500 mL, Memori a Ringers IV 10-02 Rate: 25 l 500 mL 12:00: ml/hr, Infuse over: 20 hr, Route: IV, Dosing Weight 39.4 kg, Total Volume: 500, Start date: 08/01/21 6:00:00 CAFETERIA OPERATOR, Duration: 30 day, Stop date: 08/31/21 5:59:00 CAFETERIA OPERATOR, BSA: 1.34 m2, 0 Enoxaparin 2020-08 No Notes: Memor ia 2-08 (Same as: l 15:00: Lovenox) pantoprazol 2020-08 No Notes: Adams osito e 2-08 Tablet l 13:30: should not be chewed or crushed. (Same as: Protonix) Ancef 2020-08 Yes 2 gm, 50 Memoria 2-08 mL, Route: l 00:00: IVPB, Drug form: INJ, Q8H, Dosing Weight 39.4, kg, Start date: 07/30/21 18:00:00 CAFETERIA OPERATOR, Duration: 1 day, Stop date: 07/31/21 16:00:00 CAFETERIA OPERATOR, Infuse over: 30, ABX Indication : Skin/Soft Tissue Infection, 0 glycopyrrol 2020-08 No Route: IV, Memoria ate (ANES) 2-07 Drug form: l 23:46: INJ, ONCE, Stop date: 07/30/21 17:46:00 CAFETERIA OPERATOR neostigmine 2020-08 No Route: IV, Memoria (ANES) 2- Drug form: l 23:46: INJ, ONCE, Stop date: 07/30/21 17:46:00 CAFETERIA OPERATOR ondansetron 2020-08 No Route: IV, Memoria (ANES) 2- Drug form: l 23:46: INJ, ONCE, Stop date: 07/30/21 17:46:00 CAFETERIA OPERATOR niCARdipine 2020-08 No Route: IV, Memoria (ANES) 2- Drug form: l 23:21: INJ, ONCE, Stop date: 07/30/21 17:21:00 CAFETERIA OPERATOR phenylephri 2020-08 No Route: IV, Memoria ne (ANES) 2- Drug form: l 22:56: INJ, ONCE, Stop date: 07/30/21 16:56:00 CAFETERIA OPERATOR lidocaine 2020-08 No Route: IV, Me moria (ANES) 2- Drug form: l 22:46: INJ, ONCE, Stop date: 07/30/21 16:46:00 CAFETERIA OPERATOR propofol 2020-08 No Route: IV, Mem oria (ANES) 2- Drug form: l 22:46: INJ, ONCE, Stop date: 07/30/21 16:46:00 CAFETERIA OPERATOR rocuronium 2020-08 No Route: IV, M emoria (ANES) 2- Drug form: l 22:46: INJ, ONCE, Stop date: 07/30/21 16:46:00 CAFETERIA OPERATOR fentaNYL 2020-08 No Route: IV, Mem oria (ANES) 2- Drug form: l 22:46: INJ, ONCE, Stop date: 07/30/21 16:46:00 CAFETERIA OPERATOR dexamethaso 2020-08 No Route: IV, Memoria ne (ANES) 2- Drug form: l 22:46: INJ, ONCE, Stop date: 07/30/21 16:46:00 CAFETERIA OPERATOR ceFAZolin 2020-08 No Route: IV, Me moria (ANES) 2- Drug form: l 22:41: INJ, ONCE, Stop date: 07/30/21 16:41:00 CAFETERIA OPERATOR tranexamic 2020-08 No Route: IV, M emoria acid (ANES) 2-07 Drug form: l 10 mg 22:10: INJ, Start Mike n 00 date: 07/30/21 16:10:00 CAFETERIA OPERATOR, Stop date: 07/30/21 17:10:00 CAFETERIA OPERATOR Lactated 2020-08 No Route: IV, Mem oria Ringers 2-07 Total l Injection 21:45: Volume: Christen nn IV (ANES) 00 1,000, 1000 mL Start date: 07/30/21 15:45:00 CAFETERIA OPERATOR, Stop date: 07/30/21 16:45:00 CAFETERIA OPERATOR Lidocaine 2020-08 No 0.5 mL, Memor ia Hydrochlori 2-07 Route: l de 10 MG/ML 20:00: INTRADERM, Pedro Injectable 00 Dosing Solution Weight 39.4, kg, PRE OP, Routine, Start date: 07/30/21 14:00:00 CAFETERIA OPERATOR, Duration: 1 doses or times Hydralazine 2020-08 No Notes: Adams osito 2-07 (Same as: l 19:25: Apresoline ) Push over 5 minutes Labetalol 2020-08 No 10 mg, 2 Adams osito 2-07 mL, Route: l 19:25: IVP, Drug [place] form: INJ, Q5Min, Dosing Weight 39.4, kg, PRN Elevated BP, Start date: 07/30/21 13:25:00 CAFETERIA OPERATOR, Duration: 5 doses or times, Stop date: Limited # of times, 0 Acetaminoph 2020-08 No Notes: Max Memoria en 2-07 acetaminop l 19:25: hen 4000 Pedro 00 mg/day (4 gm/day). (Same as: Tylenol Extra Strength) Fentanyl 2020-08 No Notes: Memoria 2-07 (Same as: l 19:25: Sublimaze) Pedro Preservati ve free. Hydromorpho 2020-08 No Notes: Adams osiot ne 2-07 Same as l 19:25: Dilaudid Pedro Flumazenil 2020-08 No Notes: Memor ia 2-07 (Same as: l 19:25: Romazicon) Pedro Naloxone 2020-08 No Notes: Memoria 2-07 Same as l 19:25: Narcan Ephedrine 2020-08 No Notes: Memori a - (Same as: l 19:25: ePHEDrine Sulfate) Atropine 2020-08 No Notes: Mem oria 09-30 MEDICATION l 19:25: WASTE Pedro 00 Product Size: 0.4 mg Product Wasted: ___ mg Albuterol 2020-08 No Notes: SEE Me moria 0.83 MG/ML 09-30 RT l Inhalant 19:25: DOCUMENTAT Her arshad Solution 00 ION (Same as: Proventil) Diphenhydra 2020-08 No Notes: Adasm osito mine 09-30 (Same as: l 19:25: Benadryl) Ondansetron 2020-08 No Notes: Adams osito - (Same as: l 19:25: Zofran) MEDICATION WASTE Product Size: 4 mg Product Wasted: ___ mg Acetaminoph 2020-08 No 1,000 mg, M emoria en 09-30 Route: PO, l 19:24: Drug form: Pedro 00 TAB, PRE OP, Dosing Weight 39.4, kg, Priority: NOW, Start date: 07/30/21 13:24:00 CAFETERIA OPERATOR, Duration: 1 doses or times celecoxib 2020-08 No 200 mg, Memor ia 09-30 Route: PO, l 19:24: PRE OP, Dosing Weight 39.4, kg, Not recommende d for CrCl < 30 mL/min or acute kidney injury, Priority: NOW, Start date: 07/30/21 13:24:00 CAFETERIA OPERATOR, Duration: 1 doses or times Famotidine 2020-08 No 20 mg, Memor ia 09-30 Route: PO, l 19:24: PRE OP, [place] 00 Dosing Weight 39.4, kg, Priority: NOW, Start date: 07/30/21 13:24:00 CAFETERIA OPERATOR, Duration: 1 doses or times Lactated 2020-08 No 1,000 mL, Adams osito Ringers IV 09-30 Rate: 125 l 1,000 mL 12:56: ml/hr, Infuse over: 8 hr, Route: IV, Dosing Weight 39.4 kg, Total Volume: 1,000, Priority: STAT, Start date: 07/30/21 6:56:00 CAFETERIA OPERATOR, Duration: 30 day, Stop date: 08/29/21 6:55:00 CAFETERIA OPERATOR, BSA: 1.34 m2, 0 remove 2020-08 No Notes: Memoria patch 2-06 Remove old l 15:00: patch Pedro 00 before applicatio n of new patch. WASTE: F/P - P Waste Black; E - P Waste Black Lactated 2020-08 No 1,000 mL, Adams osito Ringers IV 2-06 Rate: 100 l 1,000 mL 13:10: ml/hr, Pedro 00 Infuse over: 10 hr, Route: IV, Dosing Weight 39.4 kg, Total Volume: 1,000, Start date: 07/29/21 7:10:00 CAFETERIA OPERATOR, Duration: 30 day, Stop date: 08/28/21 7:09:00 CAFETERIA OPERATOR, BSA: 1.34 m2, 0 normal 2020-08 No 1,000 mL, Memori a saline 0.9% 2-06 Rate: 75 l IV 1,000 mL 01:22: ml/hr, Herm jason 00 Infuse over: 13.3 hr, Route: IV, Dosing Weight 39.4 kg, Total Volume: 1,000, Start date: 07/28/21 19:22:00 CAFETERIA OPERATOR, Duration: 30 day, Stop date: 08/27/21 19:21:00 CAFETERIA OPERATOR, BSA: 1.34 m2, 0 POLYETHYLEN 2020-08 No Notes: Adams osito E GLYCOL 2-05 Dissolve l 3350 15:00: in 8 oz of [place] 00 water or juice. (Same as: Miralax) Thyroxine 2020-08 No Notes: Memori a 2-05 Take 1 l 15:00: hour Pedro 00 before or 2 hours after meal; Enteral feeds may interefere with the absorption of this medication . (Same as:Levothr oid, Synthroid) Anoro 2020-08 No 1 puff, Memoria Ellipta 2-05 Route: l 62.5 mcg-25 15:00: INHALER, He rmann mcg 00 Drug Form: inhalation PWDR, kg, powder Daily, Start date: 07/28/21 9:00:00 CAFETERIA OPERATOR, Duration: 30 day, Stop date: 08/26/21 9:00:00 CAFETERIA OPERATOR Nicotine 2020-08 No Notes: Memoria 2-05 (Same as: l 15:00: Habitrol) "Remove old patch before applicatio n of new patch" WASTE: F/P - P Waste Black; E - P Waste Black heparin 2020-08 No Notes: Memoria 5000 2-05 porcine l units/mL 06:00: heparin Mike n injectable 00 solution Tylenol 2020-08 No Notes: Do Memor ia 2-05 not exceed l 04:00: 4 gm/day. (Same as: Tylenol) Albuterol 2020-08 No Notes: SEE Me moria 0.83 MG/ML 2-05 RT l Inhalant 03:26: DOCUMENTAT Her arshad Solution 00 ION (Same as: Proventil) Isolyte S 2020-08 No Notes: Memori a PH 7.4 2-05 (Same as: l 1,000 mL 03:23: Isolyte S Herm jason 00 PH7.4, Normosol-R PH 7.4, Plasma-Lyt e A ) sennosides, 2020-08 No Notes: Adams osito ALF 2-05 (Same as: l 03:00: Senokot) gabapentin 2020-08 No Notes: Memor ia 100 MG Oral 2-05 (Same as: l Capsule 03:00: Neurontin) Albuterol 2020-08 No Notes: Memori a 0.833 MG/ML 2-05 (Same as: l / 01:00: Duoneb) Ipratropium 00 [place] 0.167 MG/ML Inhalant Solution [DuoNeb] Oxycodone 2020-08 No Notes: Memori a Hydrochlori 2-04 (Same l de 1 MG/ML 23:56: as:'Roxico H ermann Oral 00 done) To Solution be drawn up in 3 mL syr Zanaflex 2020-08 No Notes: Memoria 2-04 (Same As: l 23:56: Zanaflex) Prednisone 2020-08 No Notes: Memor ia 2-04 Take with l 23:03: food. Enoxaparin 2020-08 No 30 mg, Memor ia 2-04 Route: l 23:00: SUB-Q, Pedro 00 Drug form: INJ, [id number], kg, Start date: 07/27/21 17:00:00 CAFETERIA OPERATOR, Stop date: 08/25/21 17:00:00 CAFETERIA OPERATOR predniSONE 2020-08 Yes 5 mg = 1 Mem oria 5 mg oral 2-04 tab, PO, l tablet 22:59: Every [place] 00 Other Day Prozac 2020-08 Yes 40 mg, PO, Memor ia 2-04 Daily, 0 l 22:58: Refill(s) albuterol 2020-08 Yes 2 puff, Memor ia 90 mcg/inh 2-04 INHALATION l inhalation 22:56: , QID, PRN H ermann aerosol 00 Wheezing, # 17 gm, 0 Refill(s) Anoro 2020-08 Yes 1 puff, Memoria Ellipta 2-04 INHALER, l 62.5 mcg-25 22:56: Daily, # 1 Pedro mcg 00 ea, 3 inhalation Refill(s) powder levothyroxi 2020-08 No 75 Memori a ne 75 mcg 2-04 microgram l (0.075 mg) 22:55: = 1 tab, Her arshad oral tablet 00 PO, Daily, # 30 tab, 0 Refill(s) Dextrose 2020-08 No 12.5 gm, Memor ia 50% Syringe 2-04 25 mL, l ([id number]) 22:47: Route: IVP, Drug Form: INJ, kg, PRN, PRN Blood Glucose Results, Start date: 07/27/21 16:47:00 CAFETERIA OPERATOR, Duration: 30 day, Stop date: 08/26/21 16:46:00 CAFETERIA OPERATOR, 0 Glucagon 2020-08 No 1 mg, Memoria 2-04 Route: IM, l 22:47: Drug form: PDR/INJ, PRN, kg, PRN Blood Glucose Results, Start date: 07/27/21 16:47:00 CAFETERIA OPERATOR, Duration: 30 day, Stop date: 08/26/21 16:46:00 CAFETERIA OPERATOR, 0 Bisacodyl 2020-08 No Notes: Memori a 2-04 (Same As: l 22:47: Dulcolax, Bisco-Lax) Melatonin 2020-08 No Notes: Memori a 2-04 (Same as: l 22:47: Melatonin) [place] Calcium 2020-08 No 500 mL, Memoria Chloride 2-04 Rate: 125 l 0.0014 19:26: ml/hr, Pedro MEQ/ML / 00 Infuse Potassium over: 4 Chloride hr, Route: 0.004 IV, Total MEQ/ML / Volume: Sodium 500, Start Chloride date: 0.103 07/27/21 MEQ/ML / 13:26:00 Sodium CAFETERIA OPERATOR, Lactate Duration: 0.028 4 hr, Stop MEQ/ML date: Injectable 07/27/21 Solution 17:25:00 CAFETERIA OPERATOR, 0 Cefazolin 2020-08 No Notes: Memori a 2-04 (Same as l 17:00: Ancef) Magnesium 2020-08 No 2 gm, Memoria Sulfate 2-04 Route: l 16:36: IVPB, Drug form: INJ, ONCE, kg, Start date: 07/27/21 10:36:00 CAFETERIA OPERATOR, Stop date: 07/27/21 10:36:00 CAFETERIA OPERATOR normal 2020-08 No 500 mL, Memoria saline 0.9% 2-04 500 ml/hr, l (Bolus) IV 15:44: Infuse Christen nn 00 Over: 1 hr, Route: IV, ONCE, Priority: STAT, kg, Start date: 07/27/21 9:44:00 CAFETERIA OPERATOR, Stop date: 07/27/21 9:44:00 CAFETERIA OPERATOR Albuterol 2020-08 No 3 mL, Memoria 0.833 MG/ML 2-04 Route: l / 15:25: NEB, kg, Pedro Ipratropium 00 ONCE, [place] STAT, 0.167 MG/ML Start Inhalant date: Solution 07/27/21 9:25:00 CAFETERIA OPERATOR, Stop date: 07/27/21 9:25:00 CAFETERIA OPERATOR Saline 2020-08 No Notes: Memoria Flush 0.9% 2-04 (Same as: l 10:36: BD [place] Posiflush) Isolyte S 2020-08 No Notes: Memori a PH 7.4 2-04 (Same as: l 1,000 mL 10:36: Isolyte S Herm jason 00 PH7.4, Normosol-R PH 7.4, Plasma-Lyt e A ) traMADol 2021-0 Yes UT (Ultram) 50 9-20 Health MG tablet 00:00: 00 traMADol 2020-0 Yes UT (Ultram) 50 9-20 Health MG tablet 00:00: 00 traMADol 2020-0 Yes UT (Ultram) 50 9-20 Health MG tablet 00:00: 00 traMADol 2020-0 Yes UT (Ultram) 50 9-20 Health MG tablet 00:00: 00 traMADol 2020-0 Yes UT (Ultram) 50 9-20 Health MG tablet 00:00: 00 Medrol Medrol 2020-0 2021- No Medrol Dosepak Dosepak 02-11 Dosepak 00:00: 00:00 00 :00 Medrol Medrol 2020-0 1- No Medrol Common Dosepak Dosepak 02-11 Dosepak Spiri t 00:00: 00:00 - [facility] 00 :00 [facility] albuterol 2020-0 Yes [place] 108 (90 6-18 Health Base) 00:00: MCG/ACT 00 inhaler albuterol 2020-0 Yes UT 108 (90 6-18 Health Base) 00:00: MCG/ACT 00 inhaler albuterol 2020-0 Yes UT 108 (90 6-18 Health Base) 00:00: MCG/ACT 00 inhaler albuterol 2020-0 Yes UT 108 (90 6-18 Health Base) 00:00: MCG/ACT 00 inhaler albuterol 2020-0 Yes UT 108 (90 6-18 Health Base) 00:00: MCG/ACT 00 inhaler Omeprazole Omeprazole 2018-0 Yes Polina 1 capsule Common 8-15 [place] [facility] 00:00: - [facility] 00 [facility] Omeprazole Omeprazole 2019-0 No 1{capsu QD Omeprazole 20 MG 20 MG 8-15 le} 20 MG 00:00: 00 Omeprazole Omeprazole 2019-0 No 1{capsu QD Omeprazole 20 MG 20 MG 8-15 le} 20 MG 00:00: 00 Omeprazole Omeprazole 2019-0 No 1{capsu QD Omeprazole 20 MG 20 MG 8-15 le} 20 MG 00:00: 00 Omeprazole Omeprazole 2018-0 No 1{capsu QD Omeprazole 20 MG 20 MG 8-15 le} 20 MG 00:00: 00 Omeprazole Omeprazole No 1{capsu QD Omeprazole 20 MG 20 MG 8-15 le} 20 MG 00:00: 00 Omeprazole Omeprazole No 1{capsu QD Omeprazole 20 MG 20 MG 8-15 le} 20 MG 00:00: 00 Omeprazole Omeprazole No 1{capsu QD Omeprazole 20 MG 20 MG 8-15 le} 20 MG 00:00: 00 Omeprazole Omeprazole No 1{capsu QD Omeprazole 20 MG 20 MG 8-15 le} 20 MG 00:00: 00 Omeprazole Omeprazole No 1{capsu QD Omeprazole Common 20 MG 20 MG 8-15 le} 20 MG Spirit 00:00: - [facility] Omeprazole Omeprazole No 1{capsu QD Omeprazole 20 MG 20 MG 8-15 le} 20 MG 00:00: 00 Levothyroxi Levothyroxi Yes Polina 1 tablet Common ne Sodium ne Sodium [place] in the [place] morning on - [facility] an empty [facility] Anoro Anoro Yes Polina 1 puff Common Ellipta Ellipta [place] [facility] Aspirin Aspirin Yes Polina 1 tablet Comm on Adult Low Adult Low [place] Spir it Strength Strength [facility] Proventil Proventil Yes Polina 2 puffs as Common HFA HFA [place] needed [facility] PredniSONE PredniSONE Yes Polina 1 tablet Common [place] [facility] Prozac Prozac Yes Polina 1 capsule Commo n [place] in the [facility] Flonase Flonase Yes Polina 1 spray in Co mmon [place] each [facility] nostril [facility] Vitamin D3 Vitamin D3 Yes Polina 1 capsule Common [place] [facility] Vitamin C Vitamin C Yes Polina 1 tablet Common ER ER [place] [facility] Vitamin D3 Vitamin D3 No 1{capsu QD Vitamin D3 2000 UNIT 2000 UNIT le} 2000 UNIT FLUoxetine FLUoxetine No FLUoxetine HCl 40 MG HCl 40 MG HCl 40 MG Levothyroxi Levothyroxi No QD Levothyrox ne Sodium ne Sodium ine Sodium 75 MCG 75 MCG 75 MCG Anoro Anoro No 1{puff} QD Anoro Ellipta Ellipta Ellipta 62.5-25 62.5-25 62.5-25 MCG/INH MCG/INH MCG/INH Vitamin C Vitamin C No 1{table QD Vitamin C ER 1000 MG ER 1000 MG t} ER 1000 MG Aspirin Aspirin No 1{table QD Aspirin Adult Low Adult Low t} Adult Low Strength 81 Strength 81 Strength MG MG 81 MG predniSONE predniSONE No 1{table QD predniSONE 5 MG 5 MG t} 5 MG Flonase 50 Flonase 50 No 1{spray QD Flonase 50 MCG/ACT MCG/ACT _in_eac MCG/ACT h_nostr il} Proventil Proventil No 2{puffs QID Proventil HFA 108 (90 HFA 108 (90 _as_nee HFA 108 Base) Base) ded} (90 Base) MCG/ACT MCG/ACT MCG/ACT Vitamin D3 Vitamin D3 No 1{capsu QD Vitamin D3 2000 UNIT 2000 UNIT le} 2000 UNIT FLUoxetine FLUoxetine No FLUoxetine HCl 40 MG HCl 40 MG HCl 40 MG Levothyroxi Levothyroxi No QD Levothyrox ne Sodium ne Sodium ine Sodium 75 MCG 75 MCG 75 MCG Anoro Anoro No 1{puff} QD Anoro Ellipta Ellipta Ellipta 62.5-25 62.5-25 62.5-25 MCG/INH MCG/INH MCG/INH Vitamin C Vitamin C No 1{table QD Vitamin C ER 1000 MG ER 1000 MG t} ER 1000 MG Aspirin Aspirin No 1{table QD Aspirin Adult Low Adult Low t} Adult Low Strength 81 Strength 81 Strength MG MG 81 MG predniSONE predniSONE No 1{table QD predniSONE 5 MG 5 MG t} 5 MG Flonase 50 Flonase 50 No 1{spray QD Flonase 50 MCG/ACT MCG/ACT _in_eac MCG/ACT h_nostr il} Proventil Proventil No 2{puffs QID Proventil HFA 108 (90 HFA 108 (90 _as_nee HFA 108 Base) Base) ded} (90 Base) MCG/ACT MCG/ACT MCG/ACT Vitamin D3 Vitamin D3 No 1{capsu QD Vitamin D3 2000 UNIT 2000 UNIT le} 2000 UNIT FLUoxetine FLUoxetine No FLUoxetine HCl 40 MG HCl 40 MG HCl 40 MG Levothyroxi Levothyroxi No QD Levothyrox ne Sodium ne Sodium ine Sodium 75 MCG 75 MCG 75 MCG Anoro Anoro No 1{puff} QD Anoro Ellipta Ellipta Ellipta 62.5-25 62.5-25 62.5-25 MCG/INH MCG/INH MCG/INH Vitamin C Vitamin C No 1{table QD Vitamin C ER 1000 MG ER 1000 MG t} ER 1000 MG predniSONE predniSONE No 1{table QD predniSONE 5 MG 5 MG t} 5 MG FLUoxetine FLUoxetine No FLUoxetine HCl 40 MG HCl 40 MG HCl 40 MG Levothyroxi Levothyroxi No QD Levothyrox ne Sodium ne Sodium ine Sodium 75 MCG 75 MCG 75 MCG Proventil Proventil No 2{puffs QID Proventil HFA 108 (90 HFA 108 (90 _as_nee HFA 108 Base) Base) ded} (90 Base) MCG/ACT MCG/ACT MCG/ACT Vitamin C Vitamin C No 1{table QD Vitamin C ER 1000 MG ER 1000 MG t} ER 1000 MG Aspirin Aspirin No 1{table QD Aspirin Adult Low Adult Low t} Adult Low Strength 81 Strength 81 Strength MG MG 81 MG Anoro Anoro No 1{puff} QD Anoro Ellipta Ellipta Ellipta 62.5-25 62.5-25 62.5-25 MCG/INH MCG/INH MCG/INH Flonase 50 Flonase 50 No 1{spray QD Flonase 50 MCG/ACT MCG/ACT _in_eac MCG/ACT h_nostr il} Vitamin D3 Vitamin D3 No 1{capsu QD Vitamin D3 2000 UNIT 2000 UNIT le} 2000 UNIT predniSONE predniSONE No 1{table QD predniSONE 5 MG 5 MG t} 5 MG FLUoxetine FLUoxetine No FLUoxetine HCl 40 MG HCl 40 MG HCl 40 MG Levothyroxi Levothyroxi No QD Levothyrox ne Sodium ne Sodium ine Sodium 75 MCG 75 MCG 75 MCG Proventil Proventil No 2{puffs QID Proventil HFA 108 (90 HFA 108 (90 _as_nee HFA 108 Base) Base) ded} (90 Base) MCG/ACT MCG/ACT MCG/ACT Vitamin C Vitamin C No 1{table QD Vitamin C ER 1000 MG ER 1000 MG t} ER 1000 MG Aspirin Aspirin No 1{table QD Aspirin Adult Low Adult Low t} Adult Low Strength 81 Strength 81 Strength MG MG 81 MG Anoro Anoro No 1{puff} QD Anoro Ellipta Ellipta Ellipta 62.5-25 62.5-25 62.5-25 MCG/INH MCG/INH MCG/INH Flonase 50 Flonase 50 No 1{spray QD Flonase 50 MCG/ACT MCG/ACT _in_eac MCG/ACT h_nostr il} Vitamin D3 Vitamin D3 No 1{capsu QD Vitamin D3 2000 UNIT 1999 UNIT le} 2000 UNIT predniSONE predniSONE No 1{table QD predniSONE 5 MG 5 MG t} 5 MG FLUoxetine FLUoxetine No FLUoxetine HCl 40 MG HCl 40 MG HCl 40 MG Levothyroxi Levothyroxi No QD Levothyrox ne Sodium ne Sodium ine Sodium 75 MCG 75 MCG 75 MCG Proventil Proventil No 2{puffs QID Proventil HFA 108 (90 HFA 108 (90 _as_nee HFA 108 Base) Base) ded} (90 Base) MCG/ACT MCG/ACT MCG/ACT Vitamin C Vitamin C No 1{table QD Vitamin C ER 1000 MG ER 1000 MG t} ER 1000 MG Aspirin Aspirin No 1{table QD Aspirin Adult Low Adult Low t} Adult Low Strength 81 Strength 81 Strength MG MG 81 MG Anoro Anoro No 1{puff} QD Anoro Ellipta Ellipta Ellipta 62.5-25 62.5-25 62.5-25 MCG/INH MCG/INH MCG/INH Flonase 50 Flonase 50 No 1{spray QD Flonase 50 MCG/ACT MCG/ACT _in_eac MCG/ACT h_nostr il} Vitamin D3 Vitamin D3 No 1{capsu QD Vitamin D3 1999 UNIT 1999 UNIT le} 2000 UNIT predniSONE predniSONE No 1{table QD predniSONE 5 MG 5 MG t} 5 MG Aspirin Aspirin No 1{table QD Aspirin Adult Low Adult Low t} Adult Low Strength 81 Strength 81 Strength MG MG 81 MG Levothyroxi Levothyroxi No QD Levothyrox ne Sodium ne Sodium ine Sodium 100 MCG 100 MCG 100 MCG FLUoxetine FLUoxetine No FLUoxetine HCl 40 MG HCl 40 MG HCl 40 MG Vitamin C Vitamin C No 1{table QD Vitamin C ER 1000 MG ER 1000 MG t} ER 1000 MG Vitamin D3 Vitamin D3 No 1{capsu QD Vitamin D3 2000 UNIT 2000 UNIT le} 2000 UNIT Anoro Anoro No 1{puff} QD Anoro Ellipta Ellipta Ellipta 62.5-25 62.5-25 62.5-25 MCG/INH MCG/INH MCG/INH Flonase 50 Flonase 50 No 1{spray QD Flonase 50 MCG/ACT MCG/ACT _in_eac MCG/ACT h_nostr il} Proventil Proventil No 2{puffs QID Proventil HFA 108 (90 HFA 108 (90 _as_nee HFA 108 Base) Base) ded} (90 Base) MCG/ACT MCG/ACT MCG/ACT Vitamin D3 Vitamin D3 No 1{capsu QD Vitamin D3 2000 UNIT 2000 UNIT le} 2000 UNIT Aspirin Aspirin No 1{table QD Aspirin Adult Low Adult Low t} Adult Low Strength 81 Strength 81 Strength MG MG 81 MG Anoro Anoro No 1{puff} QD Anoro Ellipta Ellipta Ellipta 62.5-25 62.5-25 62.5-25 MCG/INH MCG/INH MCG/INH PROzac 40 PROzac 40 No 1{capsu QD PROzac 40 MG MG le_in_t MG he_morn ing} Flonase 50 Flonase 50 No 1{spray QD Flonase 50 MCG/ACT MCG/ACT _in_eac MCG/ACT h_nostr il} Proventil Proventil No 2{puffs QID Proventil HFA 108 (90 HFA 108 (90 _as_nee HFA 108 Base) Base) ded} (90 Base) MCG/ACT MCG/ACT MCG/ACT Vitamin C Vitamin C No 1{table QD Vitamin C ER 1000 MG ER 1000 MG t} ER 1000 MG Levothyroxi Levothyroxi No QD Levothyrox ne Sodium ne Sodium ine Sodium 75 MCG 75 MCG 75 MCG predniSONE predniSONE No 1{table QD predniSONE 5 MG 5 MG t} 5 MG Aspirin Aspirin No 1{table QD Aspirin Com mon Adult Low Adult Low t} Adult Low [facility] Strength 81 Strength 81 Strength - [facility] MG MG 81 MG [facility] Vitamin C Vitamin C No 1{table QD Vitamin C Common ER 1000 MG ER 1000 MG t} ER 1000 MG Spirit [facility] Flonase 50 Flonase 50 No 1{spray QD Flonase 50 Common MCG/ACT MCG/ACT _in_eac MCG/ACT Spi rit h_nostr - [facility]I il} [facility] predniSONE predniSONE No 1{table QD predniSONE Common 5 MG 5 MG t} 5 MG [facility] Vitamin D3 Vitamin D3 No 1{capsu QD Vitamin D3 Common 2000 UNIT 2000 UNIT le} 2000 UNIT [facility] PROzac 40 PROzac 40 No 1{capsu QD PROzac 40 Common MG MG le_in_t MG Spirit he_morn - [facility] ing} [facility] Levothyroxi Levothyroxi No QD Levothyrox Common ne Sodium ne Sodium ine Sodium [facility] 75 MCG 75 MCG 75 MCG - [facility] Anoro Anoro No 1{puff} QD Anoro Common Ellipta Ellipta Ellipta Spirit 62.5-25 62.5-25 62.5-25 - [facility]I MCG/INH MCG/INH MCG/INH [facility] Proventil Proventil No 2{puffs QID Proventil Common HFA 108 (90 HFA 108 (90 _as_nee HFA 108 Spirit Base) Base) ded} (90 Base) - [facility]I MCG/ACT MCG/ACT MCG/ACT [facility] PROzac 40 PROzac 40 No 1{capsu QD PROzac 40 MG MG le_in_t MG he_morn ing} predniSONE predniSONE No 1{table QD predniSONE 5 MG 5 MG t} 5 MG Flonase 50 Flonase 50 No 1{spray QD Flonase 50 MCG/ACT MCG/ACT _in_eac MCG/ACT h_nostr il} Vitamin D3 Vitamin D3 No 1{capsu QD Vitamin D3 2000 UNIT 2000 UNIT le} 2000 UNIT Anoro Anoro No 1{puff} QD Anoro Ellipta Ellipta Ellipta 62.5-25 62.5-25 62.5-25 MCG/INH MCG/INH MCG/INH Vitamin C Vitamin C No 1{table QD Vitamin C ER 1000 MG ER 1000 MG t} ER 1000 MG Aspirin Aspirin No 1{table QD Aspirin Adult Low Adult Low t} Adult Low Strength 81 Strength 81 Strength MG MG 81 MG Levothyroxi Levothyroxi No QD Levothyrox ne Sodium ne Sodium ine Sodium 75 MCG 75 MCG 75 MCG Proventil Proventil No 2{puffs QID Proventil HFA 108 (90 HFA 108 (90 _as_nee HFA 108 Base) Base) ded} (90 Base) MCG/ACT MCG/ACT MCG/ACT Aspirin Aspirin No 1{table QD Aspirin Adult Low Adult Low t} Adult Low Strength 81 Strength 81 Strength MG MG 81 MG predniSONE predniSONE No 1{table QD predniSONE 5 MG 5 MG t} 5 MG Flonase 50 Flonase 50 No 1{spray QD Flonase 50 MCG/ACT MCG/ACT _in_eac MCG/ACT h_nostr il} Proventil Proventil No 2{puffs QID Proventil HFA 108 (90 HFA 108 (90 _as_nee HFA 108 Base) Base) ded} (90 Base) MCG/ACT MCG/ACT MCG/ACT Immunizations Ordered Immunization Filled Immunization Date Status Commen ts Source Name Name Pneumovax (PPSV23) Pneumovax (PPSV23) 2019-06-21 [facility]:04[facility]00 [facility] Pneumovax (PPSV23) Pneumovax (PPSV23) 2019-06-21 [facility]pleted [facility] 15:04:00 [facility] Pneumovax (PPSV23) Pneumovax (PPSV23) 2019-06-21 [facility]pleted [facility] 15:04:00 [facility] Pneumovax (PPSV23) Pneumovax (PPSV23) 2019-06-21 [facility]pleted [facility] 15:04:00 [facility] Pneumovax (PPSV23) Pneumovax (PPSV23) 2019-06-21 [facility]pleted [facility] 15:04:00 [facility] Pneumovax (PPSV23) Pneumovax (PPSV23) 2019-06-21 Completed [facility] 15:04:00 [facility] Pneumovax (PPSV23) Pneumovax (PPSV23) 2019-06-21 [facility]pleted [facility] 15:04:00 [facility] Pneumovax (PPSV23) Pneumovax (PPSV23) 2019-06-21 Completed [facility] 15:04:00 [facility] Pneumovax (PPSV23) Pneumovax (PPSV23) 2019-06-21 Completed [facility] 15:04:00 [facility] Pneumovax (PPSV23) Pneumovax (PPSV23) 2019-06-21 Completed [facility] 15:04:00 [facility] Pneumovax Pneumovax 2019-06-21 Completed [facility] 00:00:00 [facility] Vital Signs Vital Name Observation Time Observation Value Comments Source Systolic blood 2021-11-06 19:05:00 122 mm[facility]Hg[facility] Diastolic blood 2021-11-06 19:05:00 55 mm[facility]Hg[facility] Heart rate 2021-11-06 19:05:00 87 [facility] 2021-11-06 19:05:00 [facility]6 [facility] 2021-11-06 19:05:00 [facility]02 [facility] BMI 2021-11-06 19:05:00 12.87 [facility]m2 [facility] Systolic blood 2021-09-25 18:54:00 141 mm[Hg] [facility] Diastolic blood 2021-09-25 18:54:00 79 mm[Hg] [facility] Heart rate 2021-09-25 18:54:00 76 /min [facility] 2021-09-25 18:54:00 [facility]6 [facility] 2021-09-25 18:54:00 [facility]102 [facility] 2021-09-25 18:54:00 14[facility]42 [facility] 15:40:00 62.5 [in_i] [facility] weight 2021-09-25 15:40:00 75 [lb_av] [facility] temperature 2021-09-25 15:40:00 97.1 [degF] [facility] bmi 2021-09-25 15:40:00 13.5 kg/m2 [facility] oximetry 2021-09-25 15:40:00 99 % [facility] respiratory rate 2021-09-25 15:40:00 20 /min [facility] blood pressure 2021-09-25 15:40:00 130 mm[Hg] [facility] - systolic [facility] blood pressure 2021-09-25 15:40:00 80 mm[Hg] [facility] - diastolic [facility] height 2021-09-25 15:20:00 62.5 [in_i] [facility] weight 2021-09-25 15:20:00 75 [lb_av] [facility] temperature 2021-09-25 15:20:00 97.1 [degF] [facility] bmi 2021-09-25 15:20:00 13.50 kg/m2 [facility] blood pressure 2021-09-25 15:20:00 130 mm[Hg] [facility] - systolic [facility] blood pressure 2021-09-25 15:20:00 80 mm[Hg] [facility] - diastolic [facility] Systolic blood 2021-08-14 14:32:00 108 mm[Hg] [facility] Diastolic blood 2021-08-14 14:32:00 71 mm[Hg] [facility] Heart rate 2021-08-14 14:32:00 97 /min [facility] 2021-08-14 14:32:00 162.6 [facility] 2021-08-14 14:32:00 [facility]102 [facility] 2021-08-14 14:32:00 14.42 kg[facility]m2 [facility] 2021-02-13 15:00:00 62.5 [in_i] [facility] weight 2021-02-13 15:00:00 85.8 [lb_av] [facility] temperature 2021-02-13 15:00:00 97.7 [degF] [facility] bmi 2021-02-13 15:00:00 15.44 kg/m2 [facility] oximetry 2021-02-13 15:00:00 79 % [facility] blood pressure 2021-02-13 15:00:00 136 mm[Hg] [facility] - systolic [facility] blood pressure 2021-02-13 15:00:00 84 mm[Hg] [facility] - diastolic [facility] height 2021-02-11 14:40:00 62.5 [in_i] [facility] weight 2021-02-11 14:40:00 85.4 [lb_av] [facility] temperature 2021-02-11 14:40:00 97.9 [degF] [facility] bmi 2021-02-11 14:40:00 15.37 kg/m2 [facility] oximetry 2021-02-11 14:40:00 96 % [facility] respiratory rate 2021-02-11 14:40:00 18 /min [facility] blood pressure 2021-02-11 14:40:00 128 mm[Hg] [facility] - systolic [facility] blood pressure 2021-02-11 14:40:00 84 mm[Hg] [facility] - diastolic [facility] Temperature Oral (F) 2021-08-01 17:02:00 97.8 F [facility] Rate 2021-08-01 17:02:00 [facility] Respitory Rate 2021-08-01 17:02:00 [facility] Systolic (mm Hg) 2021-08-01 17:02:00 Adams rial Pedro Diastolic (mm Hg) 2021-08-01 17:02:00 Mem orial Pedro Temperature Oral (F) 2021-08-01 12:39:00 97.7 F [facility] Rate 2021-08-01 12:39:00 [facility] Respitory Rate 2021-08-01 12:39:00 [facility] Systolic (mm Hg) 2021-08-01 12:39:00 Adams rial [place] Diastolic (mm Hg) 2021-08-01 12:39:00 Mem orial Pedro Temperature Oral (F) 2021-08-01 10:54:00 97.9 F [facility] Respitory Rate 2021-08-01 10:54:00 [facility] Rate 2021-08-01 10:54:00 [facility] Systolic (mm Hg) 2021-08-01 10:54:00 Adams rial [place] Diastolic (mm Hg) 2021-08-01 10:54:00 Mem orial Pedro Temperature Oral (F) 2021-07-29 10:37:00 97.9 F [facility] Respitory Rate 2021-07-29 09:00:00 [facility] Systolic (mm Hg) 2021-07-29 09:00:00 Adams rial Pedro Diastolic (mm Hg) 2021-07-29 09:00:00 Mem orial Pedro Systolic (mm Hg) 2021-07-29 08:00:00 Adams rial [place] Diastolic (mm Hg) 2021-07-29 08:00:00 Mem o[facility] [place] Respitory Rate 2021-07-29 08:00:00 Memori al Pedro Systolic (mm Hg) 2021-07-29 07:00:00 Adams rial [place] Diastolic (mm Hg) 2021-07-29 07:00:00 Mem orial [place] Respitory Rate 2021-07-29 07:00:00 [facility] Temperature Oral (F) 2021-07-29 06:54:00 98.1 F [facility] Temperature Oral (F) 2021-07-29 02:37:00 98.5 F [facility] Pedro Height 2021-07-27 23:42:00 162.56 cm [facility] Weight 2021-07-27 23:42:00 [facility] BMI Calculated 2021-07-27 23:42:00 Memori al [facility] Heart Rate 2021-07-27 10:01:00 [facility] Procedure Date / Time Performed Performing Clinician [facility] e XR FEMUR 2+ VW LEFT 2021-08-14 14:45:19 Bella Grijalva [facility] h Encounters Start End Encounter Admission Attending Care Care Encounter Source Date/Time Date/Time Type Type Clinicians Facility Department ID 2021-11-06 Outpatient [facility] [id number] [place] 14:41:26 [facility] 2021-11-06 Outpatient [facility] [id number] [place] 14:06:01 Health 2021-10-29 Outpatient [facility] [id number] [place] 01:04:40 [facility] 2021-10-14 Outpatient DWEEY Valenzuela [facility] [id number] [facility] 10:27:01 Polina [facility] 2021-09-26 Outpatient Nicolas, STLMLC STLMLC [id number] Common 09:42:01 Polina [facility] 2021-09-25 Outpatient [facility] [id number] [place] 12:56:20 Health 2021-09-18 Outpatient Posey, STLMLC STLMLC [id number] Common 13:17:38 Polina [id number] [facility] 2021-09-18 Outpatient Posey, STLMLC STLMLC [id number] Common 13:16:17 Polina [id number] [facility] 2021-09-18 Outpatient Posey, STLMLC STLMLC [id number] Common 11:08:16 Polina [id number] [facility] 2021-08-14 Outpatient [facility] [id number] [place] 08:32:33 Health 2020-02-14 Outpatient SHAWN CROFT MDA [id number] 14:42:33 BRIDGETT krueger 2021-11-14 2021-11-14 Office BRIAN Martin [facility] [id number] [place] 14:00:00 14:32:47 Visit Jasmin ORTHO AND [id number] Health [place] [id number] MEDICAL [id number] YENI 2 2021-11-13 2021-11-13 (TEL) STLMLC STLMLC [id number] Co mmon 00:00:00 00:00:00 [facility] 2021-11-06 2021-11-06 Office BRIAN Grijalva [facility] [id number] [place] 14:00:00 14:41:59 Visit Bella ORTIZ AND [id number] Health SP[place] [id number] MEDICAL [id number] YENI 2 2021-10-23 2021-10-23 Office BRIAN Martin [id number] [place] 13:00:00 13:43:08 Visit Jasmin PHYSICIAN [id number] Health S [id number] ORTHOPEDI [id number] CS - GARRET 1 2021-10-07 2021-10-07 (TEL) STLMLC STLMLC [id number] Co mmon 00:00:00 00:00:00 [facility] 2021-09-25 2021-09-25 Office BRIAN Avendano [facility] [id number] [place] 13:00:00 13:39:44 Visit Gunner ORTHO AND [id number] Health [place] [id number] MEDICAL [id number] [address] 2021-09-25 2021-09-25 SUB ANNUAL STLMLC STLMLC [id number] Common 00:00:00 00:00:00 MCR [facility] WELLNESS - [facility] VISIT [facility] 2021-09-25 2021-09-25 OFFICE STLMLC STLMLC [id number] Co mmon 00:00:00 00:00:00 VISIT Spirit ESTAB PT - [facility] LEVEL 4 [facility] 2021-09-19 2021-09-19 (TEL) STLMLC STLMLC [id number] Co mmon 00:00:00 00:00:00 [facility] 2021-09-19 2021-09-19 (TEL) STLMLC STLMLC [id number] Co mmon 00:00:00 00:00:00 [facility] 2021-09-13 2021-09-13 (TEL) STLMLC STLMLC [id number] Co mmon 00:00:00 00:00:00 [facility] 2021-08-14 2021-08-14 Office BRIAN AVENDANO [facility] [id number] [place] 08:30:00 09:00:00 Visit GUNNER ORTHO AND [id number] Health SP[place] [id number] MEDICAL [id number] [address] 2021-07-27 2021-08-01 Inpatient [facility] [id number] [facility] 10:00:00 22:07:00 r Pedro 38 l Orthopedic [facility] 2021-07-27 2021-08-01 Inpatient Ree [place] [id number] 11:56:00 16:07:00 [facility] 2021-07-27 2021-08-01 Outpatient Vargas, [facility] [id number] 04:00:00 16:07:00 [place] 38 [place] 2021-07-27 2021-08-01 Outpatient Vargas, [facility] [id number] 04:00:00 16:07:00 [place] 38 [place] 2021-07-27 2021-07-27 Inpatient [facility] [id number] Memoria 10:00:00 10:00:00 r [place] 38 [facility] 2021-07-27 2021-07-27 Outpatient Vargas, [facility] [id number] 04:00:00 04:00:00 Austinraheel Hardy 2021-02-15 2021-02-15 (TEL) STLMLC STLMLC [id number] Co mmon 00:00:00 00:00:00 [facility] 2021-02-13 2021-02-13 SUB ANNUAL STLMLC STLMLC [id number] Common 00:00:00 00:00:00 MCR [facility] WELLNESS - [facility] VISIT [facility] 2021-02-11 2021-02-11 OFFICE STLMLC STLMLC [id number] Co mmon 00:00:00 00:00:00 VISIT EST Spir it PT LEVEL 3 - [facility] 2020-02-07 2020-02-07 [facility] [id number] [facility] 16:20:00 16:20:00 t [facility] [address] Family [facility] Family [facility] 2020-02-01 2020-02-01 Outpatient [facility] [id number] Common 17:39:00 17:39:[address] [facility] [address] Family [facility] Family [facility] 2020-01-30 2020-01-30 Out[facility] [id number] Common 14:00:00 14:00:00 [address] [facility] [address] Family [facility] Family Medicine [facility] 2019-10-20 2019-10-20 Out[facility] [id number] Common 10:00:00 10:00:[address] [facility] 2019-10-10 2019-10-10 Out[facility] [id number] Common 15:01:00 15:01:[address] [facility] 2019-10-10 2019-10-10 Outpatient [facility] [id number] Common 14:00:00 14:00:[address] [facility] 2019-06-22 2019-06-22 Out[facility] [id number] Common 18:13:00 18:13:[address] [facility] 2019-06-21 2019-06-21 [facility] [id number] [facility] 14:20:00 14:20:[address] [facility] 2019-04-13 2019-04-13 [facility] [id number] Common 15:36:00 15:36:[address] [facility] 2019-04-07 2019-04-07 Out[facility] [id number] Common 14:40:00 14:40:[address] [facility] 2019-02-17 2019-02-17 Outpatient [facility] [id number] Common 14:01:00 14:01:[address] [facility] 2019-01-05 2019-01-05 Outpatient [facility] [id number] Common 14:45:00 14:45:[address] [facility] 2018-11-30 2018-11-30 Outpatient [facility] [id number] Common 14:20:00 14:20:[address] [facility] 2018-11-09 2018-11-09 [facility] [id number] Common 11:24:00 11:24:[address] [facility] 2018-11-05 2018-11-05 Out[facility] [id number] Common 10:30:00 10:30:00 t [facility] it Road [facility] Results Test Description Test Time Test Comments Results Result Comments Source IMMUNOLOGY 2021-08-01 19:17:00 Test Item Value Reference Range Interpretation Comme nts Coronavirus (COVID-19) ARIN (test code = Not Detected (08/01/21 1:17 PM) Coronavirus (COVID-19) ARIN) [id number] 11:52:00 Test Item Value Reference Range Interpretation Comments Hgb (test code = Hgb) 8.3 12.0-16.0 [id number] 11:52:00 Test Item Value Reference Range Interpretation Comments Hct (test code = Hct) 23.2 36.0-48.0 [facility] [id number] 11:52:00 Test Item Value Reference Range Interpretation Comments MCV (test code = MCV) 99.7 80.0-98.0 [facility] [id number]0 11:52:00 Test Item Value Reference Range Interpretation Comments MCH (test code = MCH) 35.7 pg 27.0-31.0 [facility] LancasterCwcicymHDMPUIMQME1130-63-43 11:52:00 Test Item Value Reference Range Interpretation Comments MCHC (test code = MCHC) 35.8 32.0-36.0 [facility] LancasterJcqfzglMZYYVOQNVT0235-35-63 11:52:00 Test Item Value Reference Range Interpretation Comments RDW (test code = RDW) 14.7 11.5-14.5 [facility] LancasterNzyzfnoLCTVXACYJT2063-33-94 11:52:00 Test Item Value Reference Range Interpretation Comments Platelet (test code = Platelet) 226 133-450 [facility] LancasterZamaqqiYWVFPWZIWJ4308-27-76 11:52:00 Test Item Value Reference Range Interpretation Comments MPV (test code = MPV) 7.9 7.4-10.4 [facility] LancasterUuadypuQBWKFCXQKE2931-13-20 11:52:00 Test Item Value Reference Range Interpretation Comments Segs (test code = Segs) 75.7 45.0-75.0 [facility] LancasterLimnwudFRYIUMOPWG4588-27-88 11:52:00 Test Item Value Reference Range Interpretation Comments Lymphocytes (test code = Lymphocytes) 8.6 20.0-40.0 [place] 119431-12-09 11:52:00 Test Item Value Reference Range Interpretation Comments Monocytes (test code = Monocytes) 14.1 2.0-12.0 [place] 119431-12-09 11:52:00 Test Item Value Reference Range Interpretation Comments Eosinophils (test code = 0.8 See_Comment [A utomated message] The Eosinophils) system which ge nerated this result tra nsmitted reference range : <=4.0. The reference r ciarra was not used to int erpret this result as normal/abnormal . [facility]muXHIIDAFLFK2948[facility] 11:52:00 Test Item Value Reference Range Interpretation Comments Basophils (test code = 0.8 See_Comment [Aut omated message] The Basophils) system which ge nerated this result tra nsmitted reference range : <=1.0. The reference r ciarra was not used to int erpret this result as normal/abnormal . [place] 119431-12-09 11:52:00 Test Item Value Reference Range Interpretation Comments Neutrophils # (test code = Neutrophils 3.8 1.5-8.1 #) [place] 119431-12-09 11:52:00 Test Item Value Reference Range Interpretation Comments Lymphocytes # (test code = Lymphocytes 0.4 1.0-5.5 #) [place] 119431-12-09 11:52:00 Test Item Value Reference Range Interpretation Comments Monocytes # (test code 0.7 See_Comment [Aut omated message] The = Monocytes #) system which generated this result tra nsmitted reference range : <=0.8. The reference r ciarra was not used to int erpret this result as normal/abnormal . [facility]2021-12-09 11:52:00 Test Item Value Reference Range Interpretation Comments Glucose Lvl (test code = Glucose Lvl) 85 70-99 [facility]2021-12-09 11:52:00 Test Item Value Reference Range Interpretation Comments BUN (test code = BUN) 13 7-22 [place] 569181-12-09 11:52:00 Test Item Value Reference Range Interpretation Comments Creatinine Lvl (test code = Creatinine 0.58 0.50-1.40 Lvl) [place] 569181-12-09 11:52:00 Test Item Value Reference Range Interpretation Comments Sodium Lvl (test code = Sodium Lvl) 134 135-145 [place] 569181-12-09 11:52:00 Test Item Value Reference Range Interpretation Comments Potassium Lvl (test code = Potassium 4.2 3.5-5.1 Lvl) [place] 569181-12-09 11:52:00 Test Item Value Reference Range Interpretation Comments Chloride Lvl (test code = Chloride Lvl) 100 95-109 [place] 569181-12-09 11:52:00 Test Item Value Reference Range Interpretation Comments CO2 (test code = CO2) 29 24-32 [place] 569181-12-09 11:52:00 Test Item Value Reference Range Interpretation Comments Calcium Lvl (test code = Calcium Lvl) 8.6 8.5-10.5 [place] 569181-12-09 11:52:00 Test Item Value Reference Range Interpretation Comments AGAP (test code = AGAP) 9.2 10.0-20.0 [place] 569181-12-09 11:52:00 Test Item Value Reference Range Interpretation Comments eGFR (test code = eGFR) 87 [place] 119431-12-09 11:52:00 Test Item Value Reference Range Interpretation Comments WBC (test code = WBC) 5.0 3.7-10.4 [place] [address]-12-09 11:52:00 Test Item Value Reference Range Interpretation Comments RBC (test code = RBC) 2.33 4.20-5.40 [place] 569181-12-08 11:41:00 Test Item Value Reference Range Interpretation Comments Glucose Lvl (test code = Glucose Lvl) 103 70-99 [place] 569181-12-08 11:41:00 Test Item Value Reference Range Interpretation Comments BUN (test code = BUN) 13 7-22 [place] 569181-12-08 11:41:00 Test Item Value Reference Range Interpretation Comments Creatinine Lvl (test code = Creatinine 0.53 0.50-1.40 Lvl) [place] 569181-12-08 11:41:00 Test Item Value Reference Range Interpretation Comments Sodium Lvl (test code = Sodium Lvl) 133 135-145 [place] 569181-12-08 11:41:00 Test Item Value Reference Range Interpretation Comments Potassium Lvl (test code = Potassium 4.2 3.5-5.1 Lvl) [place] 569181-12-08 11:41:00 Test Item Value Reference Range Interpretation Comments Chloride Lvl (test code = Chloride Lvl) 99 95-109 [place] 569181-12-08 11:41:00 Test Item Value Reference Range Interpretation Comments CO2 (test code = CO2) 29 24-32 [place] 569181-12-08 11:41:00 Test Item Value Reference Range Interpretation Comments Calcium Lvl (test code = Calcium Lvl) 8.4 8.5-10.5 [place] 569181-12-08 11:41:00 Test Item Value Reference Range Interpretation Comments AGAP (test code = AGAP) 9.2 10.0-20.0 [place] 569181-12-08 11:41:00 Test Item Value Reference Range Interpretation Comments eGFR (test code = eGFR) 90 [place] 119431-12-08 11:41:00 Test Item Value Reference Range Interpretation Comments Plt Morph (test code = Normal (07/31/21 5:41 Plt Morph) AM) [place] 119431-12-08 11:41:00 Test Item Value Reference Range Interpretation Comments Segs (test code = Segs) 86.8 45.0-75.0 [place] 119431-12-08 11:41:00 Test Item Value Reference Range Interpretation Comments Lymphocytes (test code = Lymphocytes) 4.0 20.0-40.0 [place] 119431-12-08 11:41:00 Test Item Value Reference Range Interpretation Comments Monocytes (test code = Monocytes) 9.0 2.0-12.0 [place] 119431-12-08 11:41:00 Test Item Value Reference Range Interpretation Comments Basophils (test code = 0.2 See_Comment [Aut omated message] The Basophils) system which ge nerated this result tra nsmitted reference range : <=1.0. The reference r ciarra was not used to int erpret this result as normal/abnormal . [place] 119431-12-08 11:41:00 Test Item Value Reference Range Interpretation Comments Neutrophils # (test code = Neutrophils 5.6 1.5-8.1 #) [facility]HfnnydhYOZLQMOXEA7931-13-79 11:41:00 Test Item Value Reference Range Interpretation Comments Lymphocytes # (test code = Lymphocytes 0.3 1.0-5.5 #) [facility] LancasterIxxmaxoHQPJISCPGK1127-06-82 11:41:00 Test Item Value Reference Range Interpretation Comments Monocytes # (test code 0.6 See_Comment [Aut omated message] The = Monocytes #) system which generated this result tra nsmitted reference range : <=0.8. The reference r ciarra was not used to int erpret this result as normal/abnormal . [facility] LancasterJdbmjhsWBDPOGOWWS8739-81-67 11:41:00 Test Item Value Reference Range Interpretation Comments Anisocyte (test code = 1+ *ABN*(07/31/21 Anisocyte) 5:41 AM) [facility] LancasterUrsvlejJKQGJSVPMP2290-97-84 11:41:00 Test Item Value Reference Range Interpretation Comments Macrocyte (test code = 1+ *ABN*(07/31/21 Macrocyte) 5:41 AM) [facility] LancasterYmhhuodUUTEBUXSCH1093-17-88 11:41:00 Test Item Value Reference Range Interpretation Comments WBC (test code = WBC) 6.5 3.7-10.4 [facility] LancasterWfavwhiHKKMIQWROH4522-40-64 11:41:00 Test Item Value Reference Range Interpretation Comments RBC (test code = RBC) 2.60 4.20-5.40 [facility] LancasterGzdnxfuIQGAPTXLRX4538-45-95 11:41:00 Test Item Value Reference Range Interpretation Comments Hgb (test code = Hgb) 9.0 12.0-16.0 [place] [address]-12-08 11:41:00 Test Item Value Reference Range Interpretation Comments Hct (test code = Hct) 25.9 36.0-48.0 [facility] LancasterXkhsfueFXABSAAFZC6967-81-75 11:41:00 Test Item Value Reference Range Interpretation Comments MCV (test code = MCV) 99.7 80.0-98.0 [place] 119431-12-08 11:41:00 Test Item Value Reference Range Interpretation Comments MCH (test code = MCH) 34.6 pg 27.0-31.0 [place] 119431-12-08 11:41:00 Test Item Value Reference Range Interpretation Comments MCHC (test code = MCHC) 34.7 32.0-36.0 [facility] 11:41:00 Test Item Value Reference Range Interpretation Comments RDW (test code = RDW) 14.9 11.5-14.5 [facility] CampusIuqvddfCBOOZCQHUX8696-87-71 11:41:00 Test Item Value Reference Range Interpretation Comments Platelet (test code = Platelet) 211 133-450 [facility] CampusWyfwrfxETAXZYYPGA4367-88-88 11:41:00 Test Item Value Reference Range Interpretation Comments MPV (test code = MPV) 8.3 7.4-10.4 [facility] Wi3 QBXUWQO4099-25-95 11:30:00 Test Item Value Reference Range Interpretation Comments ABO/Rh (test code = ABO/Rh) A NEG [facility] Wi3 LUGCEVI9517-08-17 11:30:00 Test Item Value Reference Range Interpretation Comments Antibody Scrn (test Negative (07/30/21 5:30 code = Antibody Scrn) AM) [facility]IEIU6569[facility]63-86 11:30:00 Test Item Value Reference Range Interpretation Comments Glucose Lvl (test code = Glucose Lvl) 79 70-99 [facility] HHIPQ9823-68-16 11:30:00 Test Item Value Reference Range Interpretation Comments BUN (test code = BUN) 11 -22 [facility] JGYKP7888-91-53 11:30:00 Test Item Value Reference Range Interpretation Comments Creatinine Lvl (test code = Creatinine 0.49 0.50-1.40 Lvl) [facility] FFNLK3936-51-29 11:30:00 Test Item Value Reference Range Interpretation Comments Sodium Lvl (test code = Sodium Lvl) 134 135-145 [facility] COZIZ3962-97-53 11:30:00 Test Item Value Reference Range Interpretation Comments Potassium Lvl (test code = Potassium 3.8 3.5-5.1 Lvl) [facility] KMEBV8061-55-18 11:30:00 Test Item Value Reference Range Interpretation Comments Chloride Lvl (test code = Chloride Lvl) 99 95-109 [facility] NLQIM9559-67-00 11:30:00 Test Item Value Reference Range Interpretation Comments CO2 (test code = CO2) 30 24-32 [place] 569181-12-07 11:30:00 Test Item Value Reference Range Interpretation Comments Calcium Lvl (test code = Calcium Lvl) 8.3 8.5-10.5 [place] 569181-12-07 11:30:00 Test Item Value Reference Range Interpretation Comments AGAP (test code = AGAP) 8.8 10.0-20.0 [place] 569181-12-07 11:30:00 Test Item Value Reference Range Interpretation Comments eGFR (test code = eGFR) 92 [place] 119431-12-07 11:30:00 Test Item Value Reference Range Interpretation Comments Segs (test code = Segs) 79.0 45.0-75.0 [place] 119431-12-07 11:30:00 Test Item Value Reference Range Interpretation Comments Lymphocytes (test code = Lymphocytes) 7.7 20.0-40.0 [place] 119431-12-07 11:30:00 Test Item Value Reference Range Interpretation Comments Monocytes (test code = Monocytes) 11.6 2.0-12.0 [place] 119431-12-07 11:30:00 Test Item Value Reference Range Interpretation Comments Eosinophils (test code = 1.0 See_Comment [A utomated message] The Eosinophils) system which ge nerated this result tra nsmitted reference range : <=4.0. The reference r ciarra was not used to int erpret this result as normal/abnormal . [place] 119431-12-07 11:30:00 Test Item Value Reference Range Interpretation Comments Basophils (test code = 0.7 See_Comment [Aut omated message] The Basophils) system which ge nerated this result tra nsmitted reference range : <=1.0. The reference r ciarra was not used to int erpret this result as normal/abnormal . [place] 119431-12-07 11:30:00 Test Item Value Reference Range Interpretation Comments Neutrophils # (test code = Neutrophils 4.6 1.5-8.1 #) [place] 119431-12-07 11:30:00 Test Item Value Reference Range Interpretation Comments Lymphocytes # (test code = Lymphocytes 0.5 1.0-5.5 #) [address]12-07 11:30:00 Test Item Value Reference Range Interpretation Comments Monocytes # (test code 0.7 See_Comment [Aut omated message] The = Monocytes #) system which generated this result tra nsmitted reference range : <=0.8. The reference r ciarra was not used to int erpret this result as normal/abnormal . [facility] LancasterQpuknnsCUGFEGKXFX3164-00-95 11:30:00 Test Item Value Reference Range Interpretation Comments Eosinophils # (test code 0.1 See_Comment [A utomated message] The = Eosinophils #) system whic h generated this result tra nsmitted reference range : <=0.5. The reference r ciarra was not used to int erpret this result as normal/abnormal . [place] 119431-12-07 11:30:00 Test Item Value Reference Range Interpretation Comments WBC (test code = WBC) 5.8 3.7-10.4 [place] 119431-12-07 11:30:00 Test Item Value Reference Range Interpretation Comments RBC (test code = RBC) 2.56 4.20-5.40 [place] 119431-12-07 11:30:00 Test Item Value Reference Range Interpretation Comments Hgb (test code = Hgb) 8.9 12.0-16.0 [place] 119431-12-07 11:30:00 Test Item Value Reference Range Interpretation Comments Hct (test code = Hct) 25.6 36.0-48.0 [place] 119431-12-07 11:30:00 Test Item Value Reference Range Interpretation Comments MCV (test code = MCV) 99.8 80.0-98.0 [place] 119431-12-07 11:30:00 Test Item Value Reference Range Interpretation Comments MCH (test code = MCH) 34.8 pg 27.0-31.0 [place] 119431-12-07 11:30:00 Test Item Value Reference Range Interpretation Comments MCHC (test code = MCHC) 34.9 32.0-36.0 [place] 119431-12-07 11:30:00 Test Item Value Reference Range Interpretation Comments RDW (test code = RDW) 15.0 11.5-14.5 [place] 119431-12-07 11:30:00 Test Item Value Reference Range Interpretation Comments Platelet (test code = Platelet) 189 133-450 [facility] LancasterXstfezaAZIZHYHNEY1773-93-46 11:30:00 Test Item Value Reference Range Interpretation Comments MPV (test code = MPV) 8.5 7.4-10.4 [place] 119431-12-07 11:30:00 Test Item Value Reference Range Interpretation Comments PROTIME (test code = PROTIME) 12.4 s 12.0-14.7 [place] 119431-12-07 11:30:00 Test Item Value Reference Range Interpretation Comments INR (test code = INR) 0.93 1 0.85-1.17 [place] 119431-12-07 11:30:00 Test Item Value Reference Range Interpretation Comments aPTT (test code = aPTT) 40.2 s 22.9-35.8 [place] 119431-12-06 14:55:00 Test Item Value Reference Range Interpretation Comments PT (test code = PT) 13.3 s 12.0-14.7 [place] 119431-12-06 14:55:00 Test Item Value Reference Range Interpretation Comments INR (test code = INR) 1.02 1 0.85-1.17 [place] 119431-12-06 14:55:00 Test Item Value Reference Range Interpretation Comments PTT (test code = PTT) 56.2 s 22.9-35.8 [place] 119431-12-06 14:55:00 Test Item Value Reference Range Interpretation Comments Eosinophils (test code = 0.4 See_Comment [A utomated message] The Eosinophils) system which ge nerated this result tra nsmitted reference range : <=4.0. The reference r ciarra was not used to int erpret this result as normal/abnormal . [facility] LancasterHyrjivpZBAPMAKVQY9110-27-94 14:55:00 Test Item Value Reference Range Interpretation Comments Macrocyte (test code = 1+ *ABN*(07/29/21 Macrocyte) 8:55 AM) [facility]2021-12-05 06:58:00 Test Item Value Reference Range Interpretation Comments Lactic Acid Lvl (test code = Lactic 1.6 0.5-2.2 Acid Lvl) [facility]2021-12-05 06:58:00 Test Item Value Reference Range Interpretation Comments Glucose Lvl (test code = Glucose Lvl) 127 70-99 [place] 569181-12-05 06:58:00 Test Item Value Reference Range Interpretation Comments BUN (test code = BUN) 12 7-22 [place] 569181-12-05 06:58:00 Test Item Value Reference Range Interpretation Comments Creatinine Lvl (test code = Creatinine 0.79 0.50-1.40 Lvl) [place] 569181-12-05 06:58:00 Test Item Value Reference Range Interpretation Comments Sodium Lvl (test code = Sodium Lvl) 133 135-145 [place] 569181-12-05 06:58:00 Test Item Value Reference Range Interpretation Comments Potassium Lvl (test code = Potassium 3.7 3.5-5.1 Lvl) [place] 569181-12-05 06:58:00 Test Item Value Reference Range Interpretation Comments Chloride Lvl (test code = Chloride Lvl) 98 95-109 [place] 569181-12-05 06:58:00 Test Item Value Reference Range Interpretation Comments CO2 (test code = CO2) 28 24-32 [place] 569181-12-05 06:58:00 Test Item Value Reference Range Interpretation Comments Calcium Lvl (test code = Calcium Lvl) 8.8 8.5-10.5 [place] 569181-12-05 06:58:00 Test Item Value Reference Range Interpretation Comments AGAP (test code = AGAP) 10.7 10.0-20.0 [place] 569181-12-05 06:58:00 Test Item Value Reference Range Interpretation Comments eGFR (test code = eGFR) 71 [place] 569181-12-05 06:58:00 Test Item Value Reference Range Interpretation Comments Lactic Acid Lvl (test code = Lactic 1.6 0.5-2.2 Acid Lvl) [facility] LancasterZdvttliXXZPVLNEZL8675-18-23 06:58:00 Test Item Value Reference Range Interpretation Comments Segs (test code = Segs) 87.6 45.0-75.0 [place] 119431-12-05 06:58:00 Test Item Value Reference Range Interpretation Comments Lymphocytes (test code = Lymphocytes) 3.6 20.0-40.0 [facility] LancasterXsdilcxGBNVPIENHW5359-18-21 06:58:00 Test Item Value Reference Range Interpretation Comments Monocytes (test code = Monocytes) 8.6 2.0-12.0 [facility] LancasterBqtbuttSXRBJAXFKW6824-76-01 06:58:00 Test Item Value Reference Range Interpretation Comments Basophils (test code = 0.2 See_Comment [Aut omated message] The Basophils) system which ge nerated this result tra nsmitted reference range : <=1.0. The reference r ciarra was not used to int erpret this result as normal/abnormal . [facility] LancasterJpucqiyPLNKDUTITX9638-44-04 06:58:00 Test Item Value Reference Range Interpretation Comments Neutrophils # (test code = Neutrophils 7.3 1.5-8.1 #) [facility] LancasterOsmqnilVPJBHYODTV2237-87-21 06:58:00 Test Item Value Reference Range Interpretation Comments Lymphocytes # (test code = Lymphocytes 0.3 1.0-5.5 #) [facility] LancasterIldeuchULBFTTCRRO8463-59-32 06:58:00 Test Item Value Reference Range Interpretation Comments Monocytes # (test code 0.7 See_Comment [Aut omated message] The = Monocytes #) system which generated this result tra nsmitted reference range : <=0.8. The reference r ciarra was not used to int erpret this result as normal/abnormal . [facility] LancasterYxjvzgpLDTFAGTSQG4845-99-27 06:58:00 Test Item Value Reference Range Interpretation Comments Macrocyte (test code = 1+ *ABN*(07/28/21 Macrocyte) 12:58 AM) [facility] LancasterXhxrchiFFQTZUNZAM9974-16-61 06:58:00 Test Item Value Reference Range Interpretation Comments WBC (test code = WBC) 8.4 3.7-10.4 [facility] LancasterMfoigluCCPIKZCUAL8435-37-05 06:58:00 Test Item Value Reference Range Interpretation Comments RBC (test code = RBC) 3.05 4.20-5.40 [facility] LancasterZipkqfyKIUVXUMNAB4510-22-95 06:58:00 Test Item Value Reference Range Interpretation Comments Hgb (test code = Hgb) 10.8 12.0-16.0 [place] 119431-12-05 06:58:00 Test Item Value Reference Range Interpretation Comments Hct (test code = Hct) 30.5 36.0-48.0 [facility] LancasterZqmulfvYHZAEASGSK0000-95-86 06:58:00 Test Item Value Reference Range Interpretation Comments MCV (test code = MCV) 100.1 80.0-98.0 [facility] LancasterJwhftpiFLHLUINQGL2061-74-06 06:58:00 Test Item Value Reference Range Interpretation Comments MCH (test code = MCH) 35.4 pg 27.0-31.0 [facility] LancasterGgsxzduJIPOJYCRFF0175-99-63 06:58:00 Test Item Value Reference Range Interpretation Comments MCHC (test code = MCHC) 35.4 32.0-36.0 [facility] LancasterGdhgmetIHJVRPRMCZ1382-27-24 06:58:00 Test Item Value Reference Range Interpretation Comments RDW (test code = RDW) 14.7 11.5-14.5 [facility] LancasterKurpjvtMYXDNABJUV0927-18-34 06:58:00 Test Item Value Reference Range Interpretation Comments Platelet (test code = Platelet) 179 133-450 [facility] LancasterWxjxlpyCGXANTTTPO2882-03-90 06:58:00 Test Item Value Reference Range Interpretation Comments MPV (test code = MPV) 8.1 7.4-10.4 [facility] LancasterOzhbmudEELJKLXPYB9413-52-39 06:58:00 Test Item Value Reference Range Interpretation Comments Macrocyte (test code = 1+ *ABN*(07/28/21 Macrocyte) 12:58 AM) [place] 913061-12-05 06:58:00 Test Item Value Reference Range Interpretation Comments Albumin % (test code = Albumin %) 61.6 55.8-66.1 [place] 913061-12-05 06:58:00 Test Item Value Reference Range Interpretation Comments Alpha 1 % (test code = Alpha 1 %) 6.8 2.8-4.9 [place] 913061-12-05 06:58:00 Test Item Value Reference Range Interpretation Comments Alpha 2 % (test code = Alpha 2 %) 13.6 7.0-11.9 [place] 913061-12-05 06:58:00 Test Item Value Reference Range Interpretation Comments Beta % (test code = Beta %) 9.8 7.8-13.7 [place] 913061-12-05 06:58:00 Test Item Value Reference Range Interpretation Comments Gamma % (test code = Gamma %) 8.2 11.1-18.[address] [facility]UgyhrtrUVNUTTAYZU7269-70-45 06:58:00 Test Item Value Reference Range Interpretation Comments Albumin (SPE) (test code = Albumin 4.00 3.57-5.55 (SPE)) [facility] HospitalDzbbjekMMFJUDVCKA8626-18-74 06:58:00 Test Item Value Reference Range Interpretation Comments Alpha 1 Glob (test code = Alpha 1 Glob) 0.44 0.18-0.[address] [facility] [facility] [facility] HospitalViwqwfdAZHICBLDFZ8576-36-34 06:58:00 Test Item Value Reference Range Interpretation Comments Alpha 2 Glob (test code = Alpha 2 Glob) 0.88 0.45-1.00 [facility] CampusRsoszxoPZSQARPYGZ4557-47-18 06:58:00 Test Item Value Reference Range Interpretation Comments Beta Glob (test code = Beta Glob) 0.64 0.50-1.[address] [facility] [facility] [facility] HospitalNqighoeLVIUARFFUX5181-65-53 06:58:00 Test Item Value Reference Range Interpretation Comments Gamma Glob (test code = Gamma Glob) 0.53 0.71-1.[address] [facility] [facility] HospitalEjgnwxlNOQWHUYBNT5585-17-90 06:58:00 Test Item Value Reference Range Interpretation Comments Tot Prot (SPE) (test code = Tot Prot 6.5 6.4-8.4 (SPE)) [facility] HospitalXztvudhILFBSQBBQF1268-65-17 06:58:00 Test Item Value Reference Range Interpretation Comments SPE Interp Total protein and albumin (test code = levels are within the SPE Interp) reference ranges. A mild decrease in the gamma globulin fraction is present. No other abnormalities are detected. No monoclonal bands are identified. 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 Recommend urine protein immunofixation electrophoresis to rule out presence of Bence Choudhury proteins. Other causes of hypogammaglobulinemia, including lymphoid malignancies, have to be considered. Clinical correlation is suggested. Please submit a 24-hour urine specimen. I have personally reviewed the test results and concur with the resident's interpretation. CPT: [address] [facility] HospitalPvreuugVXIXERQTOY8502-57-89 06:58:00 Test Item Value Reference Range Interpretation Comments ALVINA Ser Pattern Diffusely staining (test code = ALVINA immunoreactivity is present Ser Pattern) in the IgG, IgA, IgM, kappa, and lambda lanes in a normal polyclonal distribution. No monoclonal immunoglobulins are detected. [facility] HospitalHislxpxDSQYTXXSHH2867-19-19 06:58:00 Test Item Value Reference Range Interpretation Comments ALVINA Ser Interp The serum immunofixation (test code = ALVINA electrophoresis Ser Interp) demonstrates polyclonal distribution of immunoglobulins. No monoclonal immunoglobulins are detected. The electronic medical record has been reviewed for relevant history. I have personally reviewed the test results and concur with the resident's interpretation. CPT 61435-HG [facility]2021-12-05 06:58:00 Test Item Value Reference Range Interpretation Comments U Osmolality (test code = U Osmolality) 453 300-800 [facility]2021-12-05 06:58:00 Test Item Value Reference Range Interpretation Comments U Sodium (test code = U Sodium) 12 [facility]2021-12-05 06:58:00 Test Item Value Reference Range Interpretation Comments U Osmolality (test code = U Osmolality) 453 300-800 [facility]2021-12-05 06:58:00 Test Item Value Reference Range Interpretation Comments U Sodium (test code = U Sodium) 12 [facility] CampusCARFlatBurger MKSTUEL2591-17-22 00:47:00 Test Item Value Reference Range Interpretation Comments BNP (test code = BNP) 321 [facility] CampusAvailendarFangcangGYQTZHZ8724-68-84 00:47:00 Test Item Value Reference Range Interpretation Comments BNP (test code = BNP) 321 [facility]2021-12-05 00:47:00 Test Item Value Reference Range Interpretation Comments Lactic Acid Lvl (test code = Lactic 4.0 0.5-2.2 Acid Lvl) [facility]2021-12-05 00:47:00 Test Item Value Reference Range Interpretation Comments Glucose Lvl (test code = Glucose Lvl) 125 70-99 [facility]2021-12-05 00:47:00 Test Item Value Reference Range Interpretation Comments BUN (test code = BUN) 11 7-22 [facility]2021-12-05 00:47:00 Test Item Value Reference Range Interpretation Comments Creatinine Lvl (test code = Creatinine 1.02 0.50-1.40 Lvl) [facility]2021-12-05 00:47:00 Test Item Value Reference Range Interpretation Comments Sodium Lvl (test code = Sodium Lvl) 133 135-145 [place] 569181-12-05 00:47:00 Test Item Value Reference Range Interpretation Comments Potassium Lvl (test code = Potassium 4.4 3.5-5.1 Lvl) [place] 569181-12-05 00:47:00 Test Item Value Reference Range Interpretation Comments Chloride Lvl (test code = Chloride Lvl) 98 95-109 [place] 569181-12-05 00:47:00 Test Item Value Reference Range Interpretation Comments CO2 (test code = CO2) 28 24-32 [address]12-05 00:47:00 Test Item Value Reference Range Interpretation Comments Calcium Lvl (test code = Calcium Lvl) 9.1 8.5-10.5 [place] 569181-12-05 00:47:00 Test Item Value Reference Range Interpretation Comments AGAP (test code = AGAP) 11.4 10.0-20.0 [address]12-05 00:47:00 Test Item Value Reference Range Interpretation Comments eGFR (test code = eGFR) [address]12-05 00:47:00 Test Item Value Reference Range Interpretation Comments Total Protein (test code = Total 6.0 6.4-8.4 Protein) [place] 569181-12-05 00:47:00 Test Item Value Reference Range Interpretation Comments Albumin Lvl (test code = Albumin Lvl) 3.0 3.5-5.0 [place] 569181-12-05 00:47:00 Test Item Value Reference Range Interpretation Comments ALT (test code = ALT) 17 See_Comment [Auto mated message] The system which ge nerated this result transmit petra reference range : <=65. The reference range was not used to interpr et this result as carla l/abnormal. [place] [address]-12-05 00:47:00 Test Item Value Reference Range Interpretation Comments AST (test code = AST) 32 See_Comment [Auto mated message] The system which ge nerated this result transmit petra reference range : <=37. The reference range was not used to interpr et this result as carla l/abnormal. [address]12-05 00:47:00 Test Item Value Reference Range Interpretation Comments Alk Phos (test code = Alk Phos) 86 39-136 [place] 569181-12-05 00:47:00 Test Item Value Reference Range Interpretation Comments Bili Total (test code = Bili Total) 0.5 0.2-1.3 [place] 569181-12-05 00:47:00 Test Item Value Reference Range Interpretation Comments Bili Direct (test code 0.2 See_Comment [Aut omated message] The = Bili Direct) system which generated this result tra nsmitted reference range : <=0.3. The reference r ciarra was not used to int erpret this result as carla l/abnormal. [place] 569181-12-05 00:47:00 Test Item Value Reference Range Interpretation Comments Bili Indirect (test 0.3 See_Comment [Automa petra message] The code = Bili Indirect) system which generated this result tra nsmitted reference range : <=1.0. The reference r ciarra was not used to int erpret this result as normal/abnormal . [place] 569181-12-05 00:47:00 Test Item Value Reference Range Interpretation Comments Globulin (test code = Globulin) 3.0 2.7-4.2 [address]12-05 00:47:00 Test Item Value Reference Range Interpretation Comments A/G Ratio (test code = A/G Ratio) 1.0 1 0.7-1.6 [place] 569181-12-05 00:47:00 Test Item Value Reference Range Interpretation Comments Osmolality (test code = Osmolality) 282 280-300 [place] 569181-12-05 00:47:00 Test Item Value Reference Range Interpretation Comments Lactic Acid Lvl (test code = Lactic 4.0 0.5-2.2 Acid Lvl) [address]12-05 00:47:00 Test Item Value Reference Range Interpretation Comments Total Protein (test code = Total 6.0 6.4-8.4 Protein) [place] 569181-12-05 00:47:00 Test Item Value Reference Range Interpretation Comments Albumin Lvl (test code = Albumin Lvl) 3.0 3.5-5.0 [place] 569181-12-05 00:47:00 Test Item Value Reference Range Interpretation Comments ALT (test code = ALT) 17 See_Comment [Auto mated message] The system which ge nerated this result transmit petra reference range : <=65. The reference range was not used to interpr et this result as carla l/abnormal. [facility] [place] [id number] 00:47:00 Test Item Value Reference Range Interpretation Comments AST (test code = AST) 32 See_Comment [Auto mated message] The system which ge nerated this result transmit petra reference range : <=37. The reference range was not used to interpr et this result as carla l/abnormal. [facility] [id number] 00:47:00 Test Item Value Reference Range Interpretation Comments Alk Phos (test code = Alk Phos) 86 39-136 [facility] [place] [id number] 00:47:00 Test Item Value Reference Range Interpretation Comments Bili Total (test code = Bili Total) 0.5 0.2-1.3 [facility] [id number] 00:47:00 Test Item Value Reference Range Interpretation Comments Bili Direct (test code 0.2 See_Comment [Aut omated message] The = Bili Direct) system which generated this result tra nsmitted reference range : <=0.3. The reference r ciarra was not used to int erpret this result as carla l/abnormal. [facility] [place] [id number] 00:47:00 Test Item Value Reference Range Interpretation Comments Bili Indirect (test 0.3 See_Comment [Automa petra message] The code = Bili Indirect) system which generated this result tra nsmitted reference range : <=1.0. The reference r ciarra was not used to int erpret this result as normal/abnormal . [facility] [id number] 00:47:00 Test Item Value Reference Range Interpretation Comments Globulin (test code = Globulin) 3.0 2.7-4.2 [facility] [id number] 00:47:00 Test Item Value Reference Range Interpretation Comments A/G Ratio (test code = A/G Ratio) 1.0 1 0.7-1.6 [facility] [id number] 00:47:00 Test Item Value Reference Range Interpretation Comments Osmolality (test code = Osmolality) 282 280-300 [facility] [id number] 21:10:00 Test Item Value Reference Range Interpretation Comments Lactic Acid Lvl (test code = Lactic 4.3 0.5-2.2 Acid Lvl) [facility]2021-12-04 21:10:00 Test Item Value Reference Range Interpretation Comments Lactic Acid Lvl (test code = Lactic 4.3 0.5-2.2 Acid Lvl) [facility]2021-12-04 19:39:00 Test Item Value Reference Range Interpretation Comments Glucose Lvl (test code = Glucose Lvl) 116 70-99 [facility]2021-12-04 19:39:00 Test Item Value Reference Range Interpretation Comments BUN (test code = BUN) 12 7-22 [facility]2021-12-04 19:39:00 Test Item Value Reference Range Interpretation Comments Creatinine Lvl (test code = Creatinine 1.09 0.50-1.40 Lvl) [facility]2021-12-04 19:39:00 Test Item Value Reference Range Interpretation Comments Sodium Lvl (test code = Sodium Lvl) 131 135-145 [facility]2021-12-04 19:39:00 Test Item Value Reference Range Interpretation Comments Potassium Lvl (test code = Potassium 5.4 3.5-5.1 Lvl) [facility]2021-12-04 19:39:00 Test Item Value Reference Range Interpretation Comments Chloride Lvl (test code = Chloride Lvl) 98 95-109 [facility]2021-12-04 19:39:00 Test Item Value Reference Range Interpretation Comments CO2 (test code = CO2) 23 24-32 [facility]2021-12-04 19:39:00 Test Item Value Reference Range Interpretation Comments Calcium Lvl (test code = Calcium Lvl) 9.1 8.5-10.5 [facility]2021-12-04 19:39:00 Test Item Value Reference Range Interpretation Comments AGAP (test code = AGAP) 15.4 10.0-20.0 [facility]2021-12-04 19:39:00 Test Item Value Reference Range Interpretation Comments eGFR (test code = eGFR) 48 [facility] [id number] 16:07:00 Test Item Value Reference Range Interpretation Comments Troponin-I (test code 0.08 See_Comment [Auto mated message] The = Troponin-I) system which g enerated this result transmit petra reference range : <=0.40. The reference r ciarra was not used to interpr et this result as carla l/abnormal. [facility]ajasonCARDI[facility] [id number] 16:07:00 Test Item Value Reference Range Interpretation Comments Troponin-I (test code 0.08 See_Comment [Auto mated message] The = Troponin-I) system which g enerated this result transmit petra reference range : <=0.40. The reference r ciarra was not used to interpr et this result as carla l/abnormal. [facility] [place] [id number] 16:07:00 Test Item Value Reference Range Interpretation Comments Total Protein (test code = Total 6.5 6.4-8.4 Protein) [facility] [place] [id number] 16:07:00 Test Item Value Reference Range Interpretation Comments Albumin Lvl (test code = Albumin Lvl) 3.4 3.5-5.0 [facility] [place] [id number] 16:07:00 Test Item Value Reference Range Interpretation Comments ALANINE AMINOTRANSFERASE 18 See_Comment [A utomated message] (test code = ALANINE The sys tem which AMINOTRANSFERASE) generated this result transmitted ref erence range: <=65. Th e reference range was not used to int erpret this result as normal/abnormal . [facility] [place] [id number] 16:07:00 Test Item Value Reference Range Interpretation Comments AST (test code = AST) 33 See_Comment [Auto mated message] The system which ge nerated this result transmit petra reference range : <=37. The reference range was not used to interpr et this result as carla l/abnormal. [facility] [place] [id number] 16:07:00 Test Item Value Reference Range Interpretation Comments Alk Phos (test code = Alk Phos) 94 39-136 [facility] [place] [id number] 16:07:00 Test Item Value Reference Range Interpretation Comments Bili Total (test code = Bili Total) 0.5 0.2-1.3 [facility] [place] [id number] 16:07:00 Test Item Value Reference Range Interpretation Comments Bili Direct (test code 0.2 See_Comment [Aut omated message] The = Bili Direct) system which generated this result tra nsmitted reference range : <=0.3. The reference r ciarra was not used to int erpret this result as carla l/abnormal. [facility] [id number] 16:07:00 Test Item Value Reference Range Interpretation Comments Bili Indirect (test 0.3 See_Comment [Automa petra message] The code = Bili Indirect) system which generated this result tra nsmitted reference range : <=1.0. The reference r ciarra was not used to int erpret this result as normal/abnormal . [facility] [id number] 16:07:00 Test Item Value Reference Range Interpretation Comments Globulin (test code = Globulin) 3.1 2.7-4.2 [facility] [id number] 16:07:00 Test Item Value Reference Range Interpretation Comments A/G Ratio (test code = A/G Ratio) 1.1 1 0.7-1.6 [facility] [id number] 16:07:00 Test Item Value Reference Range Interpretation Comments Phosphorus (test code = Phosphorus) 5.4 2.5-4.5 [facility] [id number] 16:07:00 Test Item Value Reference Range Interpretation Comments Total Protein (test code = Total 6.5 6.4-8.4 Protein) [facility] [id number] 16:07:00 Test Item Value Reference Range Interpretation Comments Albumin Lvl (test code = Albumin Lvl) 3.4 3.5-5.0 [facility] [id number] 16:07:00 Test Item Value Reference Range Interpretation Comments ALANINE AMINOTRANSFERASE 18 See_Comment [A utomated message] (test code = ALANINE The sys tem which AMINOTRANSFERASE) generated this result transmitted ref erence range: <=65. Th e reference range was not used to int erpret this result as normal/abnormal . [facility] [id number] 16:07:00 Test Item Value Reference Range Interpretation Comments AST (test code = AST) 33 See_Comment [Auto mated message] The system which ge nerated this result transmit petra reference range : <=37. The reference range was not used to interpr et this result as carla l/abnormal. [place] [address]-12-04 16:07:00 Test Item Value Reference Range Interpretation Comments Alk Phos (test code = Alk Phos) 94 39-136 [place] [address]-12-04 16:07:00 Test Item Value Reference Range Interpretation Comments Bili Total (test code = Bili Total) 0.5 0.2-1.3 [address]12-04 16:07:00 Test Item Value Reference Range Interpretation Comments Bili Direct (test code 0.2 See_Comment [Aut omated message] The = Bili Direct) system which generated this result tra nsmitted reference range : <=0.3. The reference r ciarra was not used to int erpret this result as carla l/abnormal. [address]12-04 16:07:00 Test Item Value Reference Range Interpretation Comments Bili Indirect (test 0.3 See_Comment [Automa petra message] The code = Bili Indirect) system which generated this result tra nsmitted reference range : <=1.0. The reference r ciarra was not used to int erpret this result as normal/abnormal . [place] 569181-12-04 16:07:00 Test Item Value Reference Range Interpretation Comments Globulin (test code = Globulin) 3.1 2.7-4.2 [address]12-04 16:07:00 Test Item Value Reference Range Interpretation Comments A/G Ratio (test code = A/G Ratio) 1.1 1 0.7-1.6 [place] [address]-12-04 16:07:00 Test Item Value Reference Range Interpretation Comments Phosphorus (test code = Phosphorus) 5.4 2.5-4.5 [place] [address]-12-04 16:07:00 Test Item Value Reference Range Interpretation Comments Sed Rate (test code = 11 See_Comment [Auto mated message] The Sed Rate) system which ge nerated this result transmit petra reference range : <=20. The reference range was not used to interpr et this result as carla l/abnormal. [place] [address]-12-04 16:07:00 Test Item Value Reference Range Interpretation Comments Sed Rate (test code = 11 See_Comment [Auto mated message] The Sed Rate) system which ge nerated this result transmit petra reference range : <=20. The reference range was not used to interpr et this result as carla l/abnormal. [id number] 16:07:00 Test Item Value Reference Range Interpretation Comments C-REACTIVE PROTEIN (test code = 58.0 C-REACTIVE PROTEIN) [facility] [id number] 16:07:00 Test Item Value Reference Range Interpretation Comments C-REACTIVE PROTEIN (test code = 58.0 C-REACTIVE PROTEIN) [facility] [id number] 16:07:00 Test Item Value Reference Range Interpretation Comments Spec Type (UPE) (test code = Spec random 100x Type (UPE)) [facility] [id number] 16:07:00 Test Item Value Reference Range Interpretation Comments Tot Prot (UPE) (test code = Tot Prot 19 (UPE)) [facility] [id number] 16:07:00 Test Item Value Reference Range Interpretation Comments Interp (UPE) (test Normal urine protein code = Interp electrophoresis with a (UPE)) trace amount of albumin. There is no evidence of a paraprotein. Please note that a random urine specimen was submitted. The electronic medical record has been reviewed for relevant history. I have personally reviewed the test results and concur with the resident's interpretation. CPT 19677-IE [facility]annPARATHYROID [id number] 16:07:00 Test Item Value Reference Range Interpretation Comments Ca Ion WB (test code = Ca Ion WB) 1.18 1.05-1.25 [facility]annPARATHYROID [id number] 16:07:00 Test Item Value Reference Range Interpretation Comments Ca Norm WB (test code = Ca Norm WB) 1.11 1.05-1.25 [facility]annPARATHYROID [id number] 16:07:00 Test Item Value Reference Range Interpretation Comments Ca Ion WB (test code = Ca Ion WB) 1.18 1.05-1.25 [facility]annPARATHYROID [id number] 16:07:00 Test Item Value Reference Range Interpretation Comments Ca Norm WB (test code = Ca Norm WB) 1.11 1.05-1.25 [facility]annCHEM [id number] 16:00:00 Test Item Value Reference Range Interpretation Comments Vitamin D, 25-OH, Total (test code = 37 Vitamin D, 25-OH, Total) [facility] Wi3 [id number] 12:02:00 Test Item Value Reference Range Interpretation Comments ABO/Rh (test code = ABO/Rh) A NEG [facility] Wi3 [id number] 12:02:00 Test Item Value Reference Range Interpretation Comments Antibody Scrn (test Negative (07/27/21 6:02 code = Antibody Scrn) AM) [facility] Wi3 [id number] 12:02:00 Test Item Value Reference Range Interpretation Comments ABO/Rh (test code = ABO/Rh) A NEG [facility] Wi3 [id number] 12:02:00 Test Item Value Reference Range Interpretation Comments Antibody Scrn (test Negative (07/27/21 6:02 code = Antibody Scrn) AM) [facility] Dinnr2021-12-04 11:57:00 Test Item Value Reference Range Interpretation Comments Troponin-I (test code 0.04 See_Comment [Auto mated message] The = Troponin-I) system which g enerated this result transmit petra reference range : <=0.40. The reference r ciarra was not used to interpr et this result as carla l/abnormal. [facility]2021-12-04 11:57:00 Test Item Value Reference Range Interpretation Comments Troponin-I (test code 0.04 See_Comment [Auto mated message] The = Troponin-I) system which g enerated this result transmit petra reference range : <=0.40. The reference r ciarra was not used to interpr et this result as calra l/abnormal. [facility] [id number] 11:57:00 Test Item Value Reference Range Interpretation Comments U Amph Scr (test code Negative *NA*(07/27/21 = U Amph Scr) 5:57 AM) [facility] [id number] 11:57:00 Test Item Value Reference Range Interpretation Comments U Cassandra Scr (test code Negative *NA*(07/27/21 = U Cassandra Scr) 5:57 AM) [facility]2021-12-04 11:57:00 Test Item Value Reference Range Interpretation Comments U Benzodiaz Scr (test Negative *NA*(07/27/21 code = U Benzodiaz Scr) 5:57 AM) [facility] [id number] 11:57:00 Test Item Value Reference Range Interpretation Comments U Cocaine Scr (test Negative *NA*(07/27/21 code = U Cocaine Scr) 5:57 AM) [facility] [id number] 11:57:00 Test Item Value Reference Range Interpretation Comments U Cannab Scr (test Negative *NA*(07/27/21 code = U Cannab Scr) 5:57 AM) [facility] [id number] 11:57:00 Test Item Value Reference Range Interpretation Comments U Opiate Scr (test Positive *ABN*(07/27/21 code = U Opiate Scr) 5:57 AM) [facility] [id number] 11:57:00 Test Item Value Reference Range Interpretation Comments U Phencyclidine Scr (test Negative code = U Phencyclidine *NA*(07/27/21 5:57 Scr) AM) [facility] [id number] 11:57:00 Test Item Value Reference Range Interpretation Comments UDS Note (test code = See Note (07/27/21 5:57 UDS Note) AM) [facility] [id number] 11:57:00 Test Item Value Reference Range Interpretation Comments U Amph Scr (test code Negative *NA*(07/27/21 = U Amph Scr) 5:57 AM) [facility] [id number] 11:57:00 Test Item Value Reference Range Interpretation Comments U Cassandra Scr (test code Negative *NA*(07/27/21 = U Cassandra Scr) 5:57 AM) [facility] [id number] 11:57:00 Test Item Value Reference Range Interpretation Comments U Benzodiaz Scr (test Negative *NA*(07/27/21 code = U Benzodiaz Scr) 5:57 AM) [facility] [id number] 11:57:00 Test Item Value Reference Range Interpretation Comments U Cocaine Scr (test Negative *NA*(07/27/21 code = U Cocaine Scr) 5:57 AM) [facility] [id number] 11:57:00 Test Item Value Reference Range Interpretation Comments U Cannab Scr (test Negative *NA*(07/27/21 code = U Cannab Scr) 5:57 AM) [facility] [id number] 11:57:00 Test Item Value Reference Range Interpretation Comments U Opiate Scr (test Positive *ABN*(07/27/21 code = U Opiate Scr) 5:57 AM) [facility] [id number] 11:57:00 Test Item Value Reference Range Interpretation Comments U Phencyclidine Scr (test Negative code = U Phencyclidine *NA*(07/27/21 5:57 Scr) AM) [facility] [id number] 11:57:00 Test Item Value Reference Range Interpretation Comments UDS Note (test code = See Note (07/27/21 5:57 UDS Note) AM) [id number] 11:57:00 Test Item Value Reference Range Interpretation Comments PTT (test code = PTT) 29.7 s 22.9-35.8 [facility] LancasterAqzcnsbZSONFDPRGU2193-13-37 11:57:00 Test Item Value Reference Range Interpretation Comments PT (test code = PT) 12.1 s 12.0-14.7 [facility] Lanc[id number] 11:57:00 Test Item Value Reference Range Interpretation Comments INR (test code = INR) 0.90 1 0.85-1.17 [facility] LancasterDiekdeyWCBXBLYLEV3507-96-36 11:57:00 Test Item Value Reference Range Interpretation Comments WBC (test code = WBC) 14.1 3.7-10.4 [facility] LancasterTqscpguDRSHXLZWHX2994-93-87 11:57:00 Test Item Value Reference Range Interpretation Comments RBC (test code = RBC) 4.00 4.20-5.40 [id number] 11:57:00 Test Item Value Reference Range Interpretation Comments Hgb (test code = Hgb) 14.0 12.0-16.0 [facility][id number] 11:57:00 Test Item Value Reference Range Interpretation Comments Hct (test code = Hct) 40.5 36.0-48.0 [id number] 11:57:00 Test Item Value Reference Range Interpretation Comments MCV (test code = MCV) 101.1 80.0-98.0 [facility] LancasterZctunobBKCXBONCVH9930-10-58 11:57:00 Test Item Value Reference Range Interpretation Comments MCH (test code = MCH) 35.1 pg 27.0-31.0 [place] 119431-12-04 11:57:00 Test Item Value Reference Range Interpretation Comments MCHC (test code = MCHC) 34.7 32.0-36.0 [place] 119431-12-04 11:57:00 Test Item Value Reference Range Interpretation Comments RDW (test code = RDW) 14.7 11.5-14.5 [place] [address]-12-04 11:57:00 Test Item Value Reference Range Interpretation Comments Platelet (test code = Platelet) 231 133-450 [place] 119431-12-04 11:57:00 Test Item Value Reference Range Interpretation Comments MPV (test code = MPV) 8.0 7.4-10.4 [place] 119431-12-04 11:57:00 Test Item Value Reference Range Interpretation Comments ACT (TEG) Rapid (test code = ACT (TEG) 105 s 86-118 Rapid) [place] 119431-12-04 11:57:00 Test Item Value Reference Range Interpretation Comments Split Point Rapid (test code = Split 0.5 min Point Rapid) [place] 119431-12-04 11:57:00 Test Item Value Reference Range Interpretation Comments R-time Rapid (test code = R-time 0.6 min 0.4-0.7 Rapid) [place] [address]-12-04 11:57:00 Test Item Value Reference Range Interpretation Comments K-time Rapid (test code = K-time 1.5 min 0.6-2.3 Rapid) [place] [address]-12-04 11:57:00 Test Item Value Reference Range Interpretation Comments Angle Rapid (test code = Angle 74 degrees 64-80 Rapid) [place] [address]-12-04 11:57:00 Test Item Value Reference Range Interpretation Comments Max Amplitude Rapid (test code = Max 66 mm 52-71 Amplitude Rapid) [address]12-04 11:57:00 Test Item Value Reference Range Interpretation Comments G-value Rapid (test code = G-value 9.5 5.0-11.6 Rapid) [place] 119431-12-04 11:57:00 Test Item Value Reference Range Interpretation Comments Estimated % Lysis Rapid 1.5 See_Comment [Au tomated message] The (test code = Estimated syste m which generated % Lysis Rapid) this result t ransmitted reference range : <=7.5. The reference r ciarra was not used to int erpret this result as normal/abnormal . [place] 119431-12-04 11:57:00 Test Item Value Reference Range Interpretation Comments Segs (test code = Segs) 86.0 45.0-75.0 [place] [id number] 11:57:00 Test Item Value Reference Range Interpretation Comments Lymphocytes (test code = Lymphocytes) 6.0 20.0-40.0 [place] [address]-12-04 11:57:00 Test Item Value Reference Range Interpretation Comments Monocytes (test code = Monocytes) 7.8 2.0-12.0 [place] [id number] 11:57:00 Test Item Value Reference Range Interpretation Comments Eosinophils (test code = 0.1 See_Comment [A utomated message] The Eosinophils) system which ge nerated this result tra nsmitted reference range : <=4.0. The reference r ciarra was not used to int erpret this result as normal/abnormal . [place] 119431-12-04 11:57:00 Test Item Value Reference Range Interpretation Comments Basophils (test code = 0.1 See_Comment [Aut omated message] The Basophils) system which ge nerated this result tra nsmitted reference range : <=1.0. The reference r ciarra was not used to int erpret this result as normal/abnormal . [place] 119431-12-04 11:57:00 Test Item Value Reference Range Interpretation Comments Neutrophils # (test code = Neutrophils 12.1 1.5-8.1 #) [place] 119431-12-04 11:57:00 Test Item Value Reference Range Interpretation Comments Lymphocytes # (test code = Lymphocytes 0.9 1.0-5.5 #) [place] [address]-12-04 11:57:00 Test Item Value Reference Range Interpretation Comments Monocytes # (test code 1.1 See_Comment [Aut omated message] The = Monocytes #) system which generated this result tra nsmitted reference range : <=0.8. The reference r ciarra was not used to int erpret this result as normal/abnormal . [facility] 11:57:00 Test Item Value Reference Range Interpretation Comments Macrocyte (test code = 1+ *ABN*(07/27/21 Macrocyte) 5:57 AM) [place] 119431-12-04 11:57:00 Test Item Value Reference Range Interpretation Comments PTT (test code = PTT) 29.7 s 22.9-35.8 [place] 119431-12-04 11:57:00 Test Item Value Reference Range Interpretation Comments PT (test code = PT) 12.1 s 12.0-14.7 [place] 119431-12-04 11:57:00 Test Item Value Reference Range Interpretation Comments INR (test code = INR) 0.90 1 0.85-1.17 [place] [address]-12-04 11:57:00 Test Item Value Reference Range Interpretation Comments ACT (TEG) Rapid (test code = ACT (TEG) 105 s 86-118 Rapid) [id number] 11:57:00 Test Item Value Reference Range Interpretation Comments Split Point Rapid (test code = Split 0.5 min Point Rapid) [place] 119431-12-04 11:57:00 Test Item Value Reference Range Interpretation Comments R-time Rapid (test code = R-time 0.6 min 0.4-0.7 Rapid) [place] [address]-12-04 11:57:00 Test Item Value Reference Range Interpretation Comments K-time Rapid (test code = K-time 1.5 min 0.6-2.3 Rapid) [place] [address]-12-04 11:57:00 Test Item Value Reference Range Interpretation Comments Angle Rapid (test code = Angle 74 degrees 64-80 Rapid) [place] [address]-12-04 11:57:00 Test Item Value Reference Range Interpretation Comments Max Amplitude Rapid (test code = Max 66 mm 52-71 Amplitude Rapid) [place] [address]-12-04 11:57:00 Test Item Value Reference Range Interpretation Comments G-value Rapid (test code = G-value 9.5 5.0-11.6 Rapid) [place] [address]-12-04 11:57:00 Test Item Value Reference Range Interpretation Comments Estimated % Lysis Rapid 1.5 See_Comment [Au tomated message] The (test code = Estimated syste m which generated % Lysis Rapid) this result t ransmitted reference range : <=7.5. The reference r ciarra was not used to int erpret this result as normal/abnormal . [facility] CampusLmkkixxZCLSDOPDTY2987-94-50 11:57:00 Test Item Value Reference Range Interpretation Comments Coronavirus (COVID-19) Not Detected (07/27/21 ARIN (test code = 5:57 AM) Coronavirus (COVID-19) ARIN) [facility] CampusWkitgfyKKNDSQQKMC2025-73-73 11:57:00 Test Item Value Reference Range Interpretation Comments Coronavirus (COVID-19) Not Detected (07/27/21 ARIN (test code = 5:57 AM) Coronavirus (COVID-19) ARIN) [id number] 11:57:00 Test Item Value Reference Range Interpretation Comments Ethanol Lvl (test code = Ethanol Lvl) no gt [facility] DaklkyfFMOZJMCOKJ4662-44-97 11:57:00 Test Item Value Reference Range Interpretation Comments Etoh (%) (test code = Etoh (%)) no gt [facility] HospitalBiltaknUOYIGGEUUZ8373-42-74 11:57:00 Test Item Value Reference Range Interpretation Comments Ethanol Lvl (test code = Ethanol Lvl) no gt [facility] HospitalRwgdmmbBPGEOKHBYD4440-48-90 11:57:00 Test Item Value Reference Range Interpretation Comments Etoh (%) (test code = Etoh (%)) no gt [facility] [id number] 11:57:00 Test Item Value Reference Range Interpretation Comments UA Color (test code = Yellow *NA*(07/27/21 UA Color) 5:57 AM) [facility] [id number] 11:57:00 Test Item Value Reference Range Interpretation Comments UA Turbidity (test code = Clear (07/27/21 5:57 UA Turbidity) AM) [facility]UR[facility] AND [id number] 11:57:00 Test Item Value Reference Range Interpretation Comments UA Spec Grav (test code = UA Spec Grav) no gt [facility]UR[facility] AND [id number] 11:57:00 Test Item Value Reference Range Interpretation Comments UA pH (test code = UA pH) 6.0 1 5.0-8.[address] [facility] AND [id number] 11:57:00 Test Item Value Reference Range Interpretation Comments UA Protein (test code Negative (07/27/21 5:57 = UA Protein) AM) [facility] AND [id number] 11:57:00 Test Item Value Reference Range Interpretation Comments UA Glucose (test code Negative *NA*(07/27/21 = UA Glucose) 5:57 AM) [facility] AND [id number] 11:57:00 Test Item Value Reference Range Interpretation Comments UA Ketones (test code Negative *NA*(07/27/21 = UA Ketones) 5:57 AM) [facility] AND [id number] 11:57:00 Test Item Value Reference Range Interpretation Comments UA Bili (test code = Negative *NA*(07/27/21 UA Bili) 5:57 AM) [facility] AND [id number] 11:57:00 Test Item Value Reference Range Interpretation Comments UA Blood (test code = Negative (07/27/21 5:57 UA Blood) AM) [facility] AND [id number] 11:57:00 Test Item Value Reference Range Interpretation Comments UA Urobilinogen (test code = UA no gt 0.1-1.0 Urobilinogen) [facility] AND [id number] 11:57:00 Test Item Value Reference Range Interpretation Comments UA Nitrite (test code Negative (07/27/21 5:57 = UA Nitrite) AM) [facility] AND [id number] 11:57:00 Test Item Value Reference Range Interpretation Comments UA Leuk Est (test Negative (07/27/21 5:57 code = UA Leuk Est) AM) [facility] AND [id number] 11:57:00 Test Item Value Reference Range Interpretation Comments UA WBC (test code = 2 See_Comment [Automa petra message] The UA WBC) system which ge nerated this result transmit petra reference range : <=5. The reference range was not used to interpr et this result as carla l/abnormal. [facility] AND [id number] 11:57:00 Test Item Value Reference Range Interpretation Comments UA RBC (test code = 2 See_Comment [Automa petra message] The UA RBC) system which ge nerated this result transmit petra reference range : <=2. The reference range was not used to interpr et this result as carla l/abnormal. [facility] [id number] 11:57:00 Test Item Value Reference Range Interpretation Comments UA Mucus (test code = UA Mucus) Few /LPF [facility] [id number] 11:57:00 Test Item Value Reference Range Interpretation Comments UA Sq Epi (test code = UA Sq Occasional /LPF Epi) [facility] AND [id number] 11:57:00 Test Item Value Reference Range Interpretation Comments UA Color (test code = Yellow *NA*(07/27/21 UA Color) 5:57 AM) [facility] [id number] 11:57:00 Test Item Value Reference Range Interpretation Comments UA Turbidity (test code = Clear (07/27/21 5:57 UA Turbidity) AM) [facility] [id number] 11:57:00 Test Item Value Reference Range Interpretation Comments UA Spec Grav (test code = UA Spec Grav) no gt [facility] [id number] 11:57:00 Test Item Value Reference Range Interpretation Comments UA pH (test code = UA pH) 6.0 1 5.0-8.0 [facility] [id number] 11:57:00 Test Item Value Reference Range Interpretation Comments UA Protein (test code Negative (07/27/21 5:57 = UA Protein) AM) [facility] AND [id number] 11:57:00 Test Item Value Reference Range Interpretation Comments UA Glucose (test code Negative *NA*(07/27/21 = UA Glucose) 5:57 AM) [facility] AND [id number] 11:57:00 Test Item Value Reference Range Interpretation Comments UA Ketones (test code Negative *NA*(07/27/21 = UA Ketones) 5:57 AM) [facility] [id number] 11:57:00 Test Item Value Reference Range Interpretation Comments UA Bili (test code = Negative *NA*(07/27/21 UA Bili) 5:57 AM) [facility] [id number] 11:57:00 Test Item Value Reference Range Interpretation Comments UA Blood (test code = Negative (07/27/21 5:57 UA Blood) AM) [facility] AND [id number] 11:57:00 Test Item Value Reference Range Interpretation Comments UA Urobilinogen (test code = UA no gt 0.1-1.0 Urobilinogen) [facility] AND [id number] 11:57:00 Test Item Value Reference Range Interpretation Comments UA Nitrite (test code Negative (07/27/21 5:57 = UA Nitrite) AM) [facility] AND [id number] 11:57:00 Test Item Value Reference Range Interpretation Comments UA Leuk Est (test Negative (07/27/21 5:57 code = UA Leuk Est) AM) [facility] AND [id number] 11:57:00 Test Item Value Reference Range Interpretation Comments UA WBC (test code = 2 See_Comment [Automa petra message] The UA WBC) system which ge nerated this result transmit petra reference range : <=5. The reference range was not used to interpr et this result as carla l/abnormal. Wil[facility] Prather AND [id number] 11:57:00 Test Item Value Reference Range Interpretation Comments UA RBC (test code = 2 See_Comment [Automa petra message] The UA RBC) system which ge nerated this result transmit petra reference range : <=2. The reference range was not used to interpr et this result as carla l/abnormal. [facility] Prather AND [id number] 11:57:00 Test Item Value Reference Range Interpretation Comments UA Mucus (test code = UA Mucus) Few /LPF [facility] AND [id number] 11:57:00 Test Item Value Reference Range Interpretation Comments UA Sq Epi (test code = UA Sq Occasional /LPF Epi) [facility]
[2022-07-04] MEDS ORDERED: NA CHLORIDE 0.9% 500 ML ONE (13:01)
[2022-07-04 13:39] LABS: RBC Red Blood Cell Count 4.69 M/uL (3.86-4.86)
[2022-07-04 13:40] LABS: Absolute Lymphocytes (CBC) 1.1 K/uL (0.7-4.9); Lymphocytes % 8.5 % (15.3-44.8); MPV 8.9 fL (7.6-11.3)
[2022-07-04] MEDS ORDERED: HYDRALAZINE HCL 20 MG/ML VIAL ONE (13:41)
[2022-07-04 14:17] LABS: SARS-CoV-2 Antigen Rapid Res Negative (Negative)
--- NOTE | 2022-07-04 14:57 | RAD REPORT ---
EXAM DESCRIPTION: RAD - Chest Single View - 07/04/2022 2:50 pm CLINICAL HISTORY: Chest pain COMPARISON: Chest Single View dated 07/26/2021; Chest Pa And Lat (2 Views) dated 02/07/2019; CHEST PA AND LAT 2 VIEW dated 01/04/2014; CHEST PA AND LAT 2 VIEW dated 02/22/2013 FINDINGS: Lines: None. Lungs: Moderate nodularity noted in the right upper lobe. Background of emphysema. Some mild opacitie s are noted at the left lung base is well. Pleural: No significant pleural effusions or pneumothorax. Cardiac: The heart size is within normal limits. Mediastinum: Within normal limits. Bones: No acute fractures. Other: None IMPRESSION: Right upper lobe nodularity most likely representing pneumonia. Mild left basilar opacit ies also noted. Radiographic follow-up is recommended to ensure resolution.
--- NOTE | 2022-07-04 16:45 | ER ---
Nurse's Notes [facility] Name: Roselyn Riley Age: 81 yrs Sex: Female : 1940 Arrival Date: 07/04/2022 Time: 12:21 Bed 4 Private MD: Polina Valenzuela Diagnosis: Cardiopulmonary arrest Presentation: 07/04 12:38 Chief complaint: Daughter reports fatigue x 1 week, diarrhea and AMS today,. ss Coronavirus screen: At this time, the client does not indicate any symptoms associated with coronavirus-19. Ebola Screen: No symptoms or risks identified at this time. Onset of symptoms was July 04, 2022. 12:38 Method Of Arrival: Wheelchair ss 12:38 Acuity: JUNITO 2 ss 13:19 Initial Sepsis Screen: Does the patient meet any 2 criteria? No. Patient's initial jd3 sepsis screen is negative. Does the patient have a suspected source of infection? No. Patient's initial sepsis screen is negative. Risk Assessment: Do you want to hurt yourself or someone else? Patient reports no desire to harm self or others. Historical: - Allergies: 13:15 No Known Allergies; jd3 - PMHx: 13:15 Chronic obstructive lung disease; Hypothyroidism; PREVIOUS CANCER, JAW; jd3 - PSHx: 13:15 Cholecystectomy; left mandible surgery; Total abdominal hysterectomy; jd3 - Immunization history:: Adult Immunizations unknown. - Social history:: Smoking status: unknown. Screenin:15 Abuse screen: Denies threats or abuse. Nutritional screening: Has had N/V for 3 or more jd3 days Intervention for positive screen: ED Physician notified. Tuberculosis screening: No symptoms or risk factors identified. Fall Risk IV access (20 points). Ambulatory Aid- Crutches/Cane/Walker (15 pts). Gait- Impaired (20 pts.). Total Garner Fall Scale indicates High Risk Score (45 or more points). Fall prevention measures have been instituted. Side Rails Up X 2 Placed Close to Nursing Station Frequent Obs/Assessments Occuring Family Present and informed to notify staff if the need to leave the bedside As available patient and family educated on Fall Prevention Program and Strategies. Assessment: 13:12 General: Appears uncomfortable, ill, emaciated, malnourished, Behavior is calm, jd3 appropriate for age, Reports feeling ill for 0-12 hours, fatigue for 0-12 hours. Pain: Complains of pain in chest Quality of pain is described as pressure. Neuro: Jensen Agitation-Sedation Scale (RASS): -1 Drowsy Level of Consciousness is awake, obeys commands, confused, Oriented to person, place. Cardiovascular: Heart tones present Capillary refill < 3 seconds Rhythm is irregular. Respiratory: Reports shortness of breath Airway is patent Respiratory effort is even, labored, shallow, Respiratory pattern is symmetrical, tachypnea Breath sounds are diminished bilaterally. GI: No signs and/or symptoms were reported involving the gastrointestinal system. : No signs and/or symptoms were reported regarding the genitourinary system. EENT: No signs and/or symptoms were reported regarding the EENT system. Derm: Skin is intact, is fragile, is thin, Skin is dry, Skin is pale, Skin temperature is cool. Musculoskeletal: No signs and/or symptoms reported regarding the musculoskeletal system. 13:30 Reassessment: Patient and/or family updated on plan of care and expected duration. Pain jd3 level reassessed. provider notified of high blood pressures, orders received see OCT. 14:05 Reassessment: No changes from previously documented assessment. Patient and/or family jd3 updated on plan of care and expected duration. Pain level reassessed. Patient states feeling better. 14:58 Reassessment: No changes from previously documented assessment. Patient and/or family jd3 updated on plan of care and expected duration. Pain level reassessed. pt resting in bed with family at bedside. 15:30 Reassessment: No changes from previously documented assessment. Patient and/or family jd3 updated on plan of care and expected duration. Pain level reassessed. resting in bed with family at bedside. 16:00 Reassessment: Patient and/or family updated on plan of care and expected duration. Pain jd3 level reassessed. pt appears calm. respirations appear shallow and weak. 16:20 Reassessment: Patient and/or family updated on plan of care and expected duration. Pain jd3 level reassessed. no cardiac sounds heard, pt with no respiratory effort at this time. asystole noted on the rn building, provider at bedside. family at bedside. provider calling time of at 1620. 21:53 Reassessment: undertaker at bedside. aa9 Vital Signs: 12:38 BP 123 / 78; Pulse 104; Resp 25; Temp 97.8; Pulse Ox 90% on R/A; Weight 34.02 kg; ss Height 5 ft. 4 in. (162.56 cm); Pain 0/10; 13:00 BP 154 / 114; Pulse 102; Resp 34; Pulse Ox 94% on R/A; vg1 13:30 BP 257 / 121; Pulse 98; Resp 35; Pulse Ox 98% on R/A; vg1 13:32 BP 249 / 118; Pulse 99; Resp 34; Pulse Ox 97% on R/A; vg1 13:34 BP 237 / 116; Pulse 99; Resp 36; Pulse Ox 94% ; vg1 13:43 BP 222 / 108; Pulse 100; Resp 32; Pulse Ox 95% on R/A; vg1 14:05 BP 129 / 79; Pulse 101; Resp 30; Pulse Ox 95% on 3 lpm NC; jd3 14:58 BP 143 / 84; Pulse 96; Resp 31; Pulse Ox 94% on 3 lpm NC; jd3 15:30 BP 102 / 88; Pulse 83; Resp 26; Pulse Ox 90% on 3 lpm NC; jd3 16:20 BP 49 / ???; Pulse 0; Resp 0; Pulse Ox 85% on 3 lpm NC; jd3 12:38 Body Mass Index 12.87 (34.02 kg, 162.56 cm) ED Course: 12:21 Patient arrived in ED. am2 12:21 Polina Valenzuela FNP-C is Private Physician. am2 12:39 Triage completed. ss 12:40 Charly Ferrer MD is Attending Physician. kdr 12:42 Ethan Yoder RN is Primary Nurse. jd3 12:43 Arm band placed on. jd3 13:15 Inserted saline lock: 22 gauge in left forearm, using aseptic technique. Blood jd3 collected. 13:17 Patient has correct armband on for positive identification. Placed in gown. Bed in low jd3 position. Call light in reach. Side rails up X2. Adult w/ patient. Client placed on continuous cardiac and pulse oximetry monitoring. NIBP monitoring applied. corporate physical security supervisor on. Pulse ox on. NIBP on. Warm blanket given. 14:52 XRAY Chest (1 view) In Process Unspecified. EDMS 16:23 [employer] [place] [employer] dispatch called to page out the Crm Solution Architect cash applications specialist. eb 16:44 Charly Ferrer MD is Pronouncing Provider. kdr 17:27 [facility] called/ the dispatch will page the cash applications specialist. eb 19:48 Primary Nurse role handed off by Ethan Yoder, KEYUR mw2 Administered Medications: 13:10 Drug: NS 0.9% 500 ml Route: IV; Rate: bolus; Site: left forearm; jd3 13:53 Follow up: Response: No adverse reaction; IV Status: Completed infusion; IV Intake: jd3 500ml 13:43 Drug: hydrALAZINE 5 mg Route: IVP; Site: left forearm; jd3 14:40 Follow up: Response: No adverse reaction jd3 13:52 Drug: hydrALAZINE 5 mg Route: IVP; Site: left forearm; jd3 14:50 Follow up: Response: No adverse reaction jd3 Medication: 13:15 VIS not applicable for this client. jd3 Intake: 13:53 IV: 500ml; Total: 500ml. jd3 Outcome: 16:20 Condition: jd3 16:20 Patient : Time of 16:20 Pronounced by Charly Ferrer MD jd3 21:54 Patient left the ED. mw2 Signatures: Dispatcher [employer] EDAK Charly Ferrer MD MD [facility] Jennifer Hi, RN RN Izzy Andrade am2 Ethan Yoder RN RN jd3 João Victor mw2 Sparkle Xavier Victoria RN RN 1 Tamiko Hay, RN RN aa9 Corrections: (The following items were deleted from the chart) 13:54 13:12 Neuro: Jensen Agitation-Sedation Scale (RASS): -1 Drowsy Level of Consciousness jd3 is awake, obeys commands, Oriented to Appropriate for age jd3 16:44 14:05 BP 129 / 79; Pulse 101bpm; Resp 30bpm; Pulse Ox 95% Nasal Cannula; jd3 jd3 16:44 14:58 BP 143 / 84; Pulse 96bpm; Resp 31bpm; Pulse Ox 94% Nasal Cannula; jd3 jd3 16:47 16:20 Reassessment: asystole noted on the rn building, provider at bedside jd3 jd3 16:49 14:50 Response: No adverse reaction jd3 jd3
--- NOTE | 2022-07-04 16:46 | EDPHYS ---
Physician Documentation [facility] Name: Roselyn Riley Age: 81 yrs Sex: Female : 1940 Arrival Date: 07/04/2022 Time: 12:21 Bed 4 Private MD: Polina Valenzuela ED Physician Charly Ferrer HPI: 07/04 19:00 This 81 yrs old Female presents to ER via Wheelchair with complaints of General kdr Weakness, Altered Mental Status. 19:01 Patient was brought from home after having generalized fatigue and diarrhea for about a kdr week. Today she was altered and that is what prompted family to bring her in. Patient is very emaciated looking and has agonal breathing on arrival. Onset: The symptoms/episode began/occurred gradually, 1 week(s) ago. Severity of symptoms: At their worst the symptoms were mild moderate just prior to arrival, in the emergency department the symptoms are unchanged. The patient has not experienced similar symptoms in the past. The patient has not recently seen a physician. Family states that the patient became altered today and poorly responsive. On arrival she was breathing and agonal fashion and otherwise not responding. Historical: - Allergies: 13:15 No Known Allergies; jd3 - PMHx: 13:15 Chronic obstructive lung disease; Hypothyroidism; PREVIOUS CANCER, JAW; jd3 - PSHx: 13:15 Cholecystectomy; left mandible surgery; Total abdominal hysterectomy; jd3 - Immunization history:: Adult Immunizations unknown. - Social history:: Smoking status: unknown. ROS: 19:01 Constitutional: According to family the patient has had few symptoms this week other kdr than just being generally weak she Did have some nausea and vomiting and diarrhea but otherwise no other problems 19:01 Respiratory: Positive for Agonal breathing. 19:01 MS/extremity: Positive for Patient is very emaciated with obvious failure to thrive for some period of time. Exam: 19:01 Constitutional: This is a well developed, poorly nourished patient who is unresponsive kdr and breathing in an agonal fashion Head/Face: Normocephalic, atraumatic. 19:01 Eyes: Patient's eyes are sunken and not opening to voice or stimulation. 19:01 Chest/axilla: Inspection: The patient is extremely emaciated. Vital Signs: 12:38 BP 123 / 78; Pulse 104; Resp 25; Temp 97.8; Pulse Ox 90% on R/A; Weight 34.02 kg; ss Height 5 ft. 4 in. (162.56 cm); Pain 0/10; 13:00 BP 154 / 114; Pulse 102; Resp 34; Pulse Ox 94% on R/A; vg1 13:30 BP 257 / 121; Pulse 98; Resp 35; Pulse Ox 98% on R/A; vg1 13:32 BP 249 / 118; Pulse 99; Resp 34; Pulse Ox 97% on R/A; vg1 13:34 BP 237 / 116; Pulse 99; Resp 36; Pulse Ox 94% ; vg1 13:43 BP 222 / 108; Pulse 100; Resp 32; Pulse Ox 95% on R/A; vg1 14:05 BP 129 / 79; Pulse 101; Resp 30; Pulse Ox 95% on 3 lpm NC; jd3 14:58 BP 143 / 84; Pulse 96; Resp 31; Pulse Ox 94% on 3 lpm NC; jd3 15:30 BP 102 / 88; Pulse 83; Resp 26; Pulse Ox 90% on 3 lpm NC; jd3 16:20 BP 49 / ???; Pulse 0; Resp 0; Pulse Ox 85% on 3 lpm NC; jd3 12:38 Body Mass Index 12.87 (34.02 kg, 162.56 cm) ss MDM: 16:45 Patient medically screened. kdr 19:01 Data reviewed: vital signs, nurses notes, lab test result(s). Counseling: I had a kdr detailed discussion with the patient and/or guardian regarding: the historical points, exam findings, and any diagnostic results supporting the discharge/admit diagnosis, lab results, The patient with the family present. 07/04 12:40 Order name: CBC with Diff; Complete Time: 15:20 kdr 07/04 12:40 Order name: XRAY Chest (1 view); Complete Time: 15:20 kdr 07/04 13:26 Order name: SARS RAPID; Complete Time: 15:20 eb 07/04 12:40 Order name: EKG; Complete Time: 12:41 kdr 07/04 12:40 Order name: Cardiac monitoring; Complete Time: 12:42 kdr 07/04 12:40 Order name: EKG - Nurse/Tech; Complete Time: 13:10 kdr 07/04 12:40 Order name: IV Saline Lock; Complete Time: 13:10 kdr 07/04 12:40 Order name: Labs collected and sent; Complete Time: 13:10 kdr 07/04 12:40 Order name: O2 Per Protocol; Complete Time: 12:42 kdr 07/04 12:40 Order name: O2 Sat Monitoring; Complete Time: 12:42 kdr 07/04 13:25 Order name: Labs - recollect needed: recollect lught green top/ hemolyzed/ please fill eb tubes; Complete Time: 13:45 Administered Medications: 13:10 Drug: NS 0.9% 500 ml Route: IV; Rate: bolus; Site: left forearm; jd3 13:53 Follow up: Response: No adverse reaction; IV Status: Completed infusion; IV Intake: jd3 500ml 13:43 Drug: hydrALAZINE 5 mg Route: IVP; Site: left forearm; jd3 14:40 Follow up: Response: No adverse reaction jd3 13:52 Drug: hydrALAZINE 5 mg Route: IVP; Site: left forearm; jd3 14:50 Follow up: Response: No adverse reaction jd3 Disposition: 16:44 . kdr Disposition Summary: 07/04/22 16:45 Patient Location: Home kdr Pronouncing Physician: Charly Ferrer [facility] Time of : 16:20 07/04/2022 kdr Diagnosis - Cardiopulmonary arrest kdr Signatures: Dispatcher [employer] EDMS Charly Ferrer MD MD kdr Ethan Yoder RN RN jd3 Sparkle Xavier Corrections: (The following items were deleted from the chart) 18:14 12:41 BASIC METABOLIC PANEL+C.LAB.BRZ ordered. EDMS EDMS 18:14 12:41 PROBNP+C.LAB.BRZ ordered. EDMS EDMS 18:14 12:41 Troponin High Sensitivity+C.LAB.BRZ ordered. EDMS EDMS
[2022-07-04 22:21] VITALS: TEMP 97.8
[2022-07-04 22:32] VITALS: BP 102/88
[2022-07-04 22:33] VITALS: O2SAT 85
--- NOTE | 2022-07-07 15:15 | EKG ---
Test Date: 2022-07-04 Test Time: 13:07:36 Loan Auditor: HELENA MEASUREMENT RESULTS: Intervals: Rate: 101 NC: 158 QRSD: 110 QT: 386 QTc: 500 [place]: P: 85 NC: 158 QRS: 261 T: 82 INTERPRETIVE STATEMENTS: Sinus tachycardia Right atrial enlargement Right superior axis deviation Possible Anterior infarct, age undetermined Abnormal ECG Compared to ECG 07/26/2021 21:48:20 Right superior axis now present Myocardial infarct finding now present Sinus rhythm no longer present Sinus arrhythmia no longer present Left-axis deviation no longer present Incomplete right bundle-branch block no longer present Prolonged QT interval no longer present Electronically Signed On 07-07-22 15:11:02 [employer] by Joe Lowery
== END 2022-07-04 21:54 | disposition expired ==
LOC: ER 12:19
DX: I46.9 Cardiac arrest, cause unspecified (principal); J44.9 Chronic obstructive pulmonary disease, unspecified; Z20.822 Contact with and (suspected) exposure to COVID-19
CPT/HCPCS: 96361; 93005; 85025; 71045; 96374; 99285; 87811; J0360; J7040